=== PATIENT | male | born 1945 | race Caucasian/White ===

== ENCOUNTER 2017-02-22 08:24 | Inpatient (IN) ==
[2017-02-22] MEDS ORDERED: DIPH,PERTUSS(ACELL),TET VAC/PF 0.5 ML SYRINGE IM ONE (08:44)
[2017-02-22] MEDS ORDERED: HYDROmorphone 2 MG/ML SYRINGE IV ONE (08:47)
--- NOTE | 2017-02-22 09:18 | XRay Report ---
CLINICAL INFORMATION: Trauma COMPARISON: None. FINDINGS: The heart is normal in size. Mediastinum is unremarkable. Upper lobe pulmonary vessels show slight cephalization. Lung volumes are mildly elevated - no infiltrates. No effusions. IMPRESSION: No acute cardiopulmonary disease or posttraumatic change. Interpreted and Authenticated by: Nelson Solano 02/22/17
--- NOTE | 2017-02-22 09:20 | XRay Report ---
CLINICAL INFORMATION: Trauma COMPARISON: None. FINDINGS: There is a severely comminuted intertrochanteric fracture of the left hip with moderate impaction and coxa vera angulation. Both SI joints show mild degeneration. The hip joints are normal with alignment. IMPRESSION: The severely comminuted, mildly impacted intertrochanteric fracture of the left hip with coxa vera angulation Interpreted and Authenticated by: Nelson Solano 02/22/17
--- NOTE | 2017-02-22 09:42 | Emergency Department Note ---
Fall HPI - General Chief Complaint: Fall Stated Complaint: fall, left hip pain Time Seen by Provider: 02/22/17 09:12 Source: patient, family Mode of arrival: EMS Limitations: no limitations - History of Present Illness HPI Narrative: 71-year-old male who fell against a door jam face first this morning. 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 When he landed on the hardwood floor he landed on his left hip and this hurts as well. He broke his glasses. Suffered 2 large lacerations on his forehead. No loss of consciousness. - Related Data Home Medications Medication Instructions Recorded Confirmed No Known Home Meds [No Known Home 02/22/17 02/22/17 Meds] Allergies Allergy/AdvReac Type Severity Reaction Status Date / Time No Known Drug Allergies Allergy Verified 02/22/17 08:31 Review of Systems All systems ED: reviewed and negative except as stated. Fall PMH - Past Medical History Attestation: Yes: The following information was validated with the patient. Medical history: Reports: other (Cerebellar ataxia) Surgical history ED: Reports: herniorrhaphy, orthopedic, other (Right patellar removal) Psychiatric history: Reports: anxiety - Social History smoking status: Never smoker Physical Exam No acute distress. Face exam shows 2 large lacerations on the forehead 1 approximately 5 cm long just to the right of center. Additional L-shaped 1 just to the left of center and more inferior about 2.5 cm long. Both linear. No nasal discharge or congestion. Conjunctive are clear sclerae nonicteric. Oropharynx is pink and moist. Neck is supple without lymphadenopathy thyromegaly. No carotid bruit. Heart is regular rate and rhythm no murmurs appreciated. Lungs are clear to auscultation bilaterally without wheezes rales rhonchi or respiratory distress. Abdomen soft nontender nondistended. Pain over left greater trochanter area. But no obvious deformity. He is able to move both feet and toes. Normal posterior tibialis pulse. +2 radial pulse. No pedal edema. Alert oriented and in good spirits. - General Limitations: no limitations Course Vital Signs Temperature 97.1 F 02/22/17 08:26 Pulse Rate 57 L 02/22/17 08:26 Respiratory Rate 18 02/22/17 08:26 Blood Pressure 162/96 02/22/17 08:26 Pulse Oximetry (%) 100 02/22/17 08:26 Temperature 97.1 F 02/22/17 08:26 Pulse Rate 57 L 02/22/17 11:01 Respiratory Rate 18 02/22/17 08:26 Blood Pressure 117/68 02/22/17 11:01 Pulse Oximetry (%) 97 02/22/17 11:01 Procedures - Laceration Laceration 1 Site: face Side (If applicable): left Length of wound repaired (cm): 5 Description: linear Depth: simple, single layer Local Anesthetic: lidocaine 1% Amount of Anesthesia Used (mL): 4 Skin layer closed with: nylon Size: 5-0 Number of sutures: 9 Technique: simple, interrupted Laceration 2 Site: face Side (If applicable): right Length of wound repaired (cm): 2.5 Description: clean, other (L shaped, at an angle) Depth: simple, single layer Local Anesthetic: lidocaine 1% Amount of Anesthesia Used (mL): 3 Skin layer closed with: nylon Size: 5-0 Number of sutures: 4 Technique: simple, interrupted Fall - Lab Data Lab results reviewed: Yes I reviewed the patient's lab results. Result diagrams: 02/22/17 09:55 02/22/17 09:55 Lab Results 02/22/17 02/22/17 02/22/17 Range/Units 09:55 09:55 09:55 WBC 9.0 (4.5-11.0) K/mcL RBC 4.20 L (4.50-5.90) M/mcL Hgb 13.2 L (13.5-16.5) g/dL Hct 39.2 L (41.0-55.0) % MCV 93.3 (80.0-100.0) fL MCH 31.5 (26.0-34.0) pg MCHC 33.8 (31.0-36.0) g/dL RDW 12.6 (11.5-14.5) % Plt Count 216 (140-440) K/mcL MPV 8.1 (7.4-10.4) fL Gran % 84.9 H (38.0-78.0) % Lymph % (Auto) 8.9 L (15.5-49.0) % [place] % (Auto) 5.3 (1.0-12.0) % Eos % (Auto) 0.7 (0.0-7.0) % Baso % (Auto) 0.2 (0.0-2.0) % Gran # 7.7 (1.8-8.0) K/mcL Lymph # (Auto) 0.8 L (1.5-4.8) K/mcL [place] # (Auto) 0.5 (0.1-0.9) K/mcL Eos # (Auto) 0.1 (0.0-0.7) K/mcL Baso # (Auto) 0 (0.0-0.3) K/mcL PT 13.5 (11.9-14.5) sec INR 1.0 (0.9-1.1) Sodium 140 (133-145) mmol/L Potassium 3.8 (3.3-5.1) mmol/L Chloride 101 (96-108) mmol/L Carbon Dioxide 26 (22-30) mmol/L Anion Gap 13.0 (8-16) BUN 15 (8-23) mg/dl Creatinine 0.8 (0.7-1.2) mg/dl GFR Calculation 90 Glucose 167 H (70-105) mg/dL Calcium 8.9 (8.6-10.4) mg/dl Total Bilirubin 0.5 (0.0-1.0) mg/dL AST 15 (0-37) U/l ALT 13 (0-40) U/l Alkaline Phosphatase 83 (39-117) U/L Total Protein 6.3 (5.9-8.4) gm/dL Albumin 4.0 (3.2-5.2) gm/dL Globulin 2.3 (2.2-3.7) gm/dL Albumin/Globulin Ratio 1.7 (1.0-2.3) - Radiology Data Radiology results reviewed: Yes I reviewed the patient's radiology results. Chest x-ray is unremarkable with no acute cardiopulmonary abnormality X-ray of the left hip shows an intertrochanteric fracture comminuted with a coxa vera angulation - EKG Data EKG attestation: Yes I reviewed and interpreted this EKG. EKG results narrative: EKG shows rate of 56 sinus bradycardia with long MS and QT. His got some nonspecific ST depression in V3 through V6-essentially flipped T waves which I suspect is repolarization from his neurologic issue-cerebellar ataxia. Is not having any chest pain or dyspnea Disposition Clinical Impression: Laceration Femur fracture, left Qualifiers: Encounter type: initial encounter Femur location: subtrochanteric Fracture type : closed Fracture alignment: displaced Qualified Code(s): S72.22XA - Displaced subtrochanteric fracture of left femur, initial encounter for closed fracture Summary: Repaired lacerations see procedure note Dr. Tran came in saw the patient-will admit for possible hip replacement tomorrow Disposition: Xfer As Inpt ([facility]) Condition: Fair Referrals: Rossy Orr ARNP [Primary Care Provider] -
[2017-02-22] MEDS: HYDROmorphone 2 MG/ML SYRINGE IV PRN ×4 (09:44→20:31)
[2017-02-22 10:50] LABS: Basophils # (Auto) 0 K/mcL (0.0-0.3); Basophils % (Auto) 0.2 % (0.0-2.0); Eosinophils # (Auto) 0.1 K/mcL (0.0-0.7); Eosinophils % (Auto) 0.7 % (0.0-7.0); Granulocytes % (Auto) 84.9 % (38.0-78.0); Lymphocytes # (Auto) 0.8 K/mcL (1.5-4.8); Lymphocytes % (Auto) 8.9 % (15.5-49.0); Mean Cell Volume 93.3 fL (80.0-100.0); Mean Corpuscular HGB Conc 33.8 g/dL (31.0-36.0); Mean Corpuscular Hemoglobin 31.5 pg (26.0-34.0); Monocytes # (Auto) 0.5 K/mcL (0.1-0.9); Monocytes % (Auto) 5.3 % (1.0-12.0); Platelet Count 216 K/mcL (140-440); Red Cell Distribution Width 12.6 % (11.5-14.5)
[2017-02-22] MEDS ORDERED: 0.9 % SODIUM CHLORIDE 1,000 ML IV ONE (11:00)
[2017-02-22 11:17] LABS: ALT/SGPT 13 U/l (0-40); Albumin/Globulin Ratio 1.7 (1.0-2.3); Alkaline Phosphatase 83 U/L (39-117); Blood Urea Nitrogen 15 mg/dl (8-23)
[2017-02-22] MEDS ORDERED: oxyCODONE/APAP 5/325MG TABLET PO PRN ×2 (12:09→12:37)
[2017-02-22] MEDS ORDERED: TRANEXAMIC ACID 1,000 MG/10 ML VIAL IV ONE ×2 (12:13→12:37)
--- NOTE | 2017-02-22 13:26 | Consultation ---
DATE OF CONSULTATION: 02/22/2017 PREOPERATIVE DIAGNOSIS: Left 4-part intertrochanteric hip fracture. HISTORY OF PRESENT ILLNESS: The patient presented complaining of significant left hip pain with a recent fall. He has had neurologic weakness in the lower extremities that come and go, diagnosed with a viral neuropathic problem. This has been ongoing for several years. He fell because of this weakness, had immediate pain within his hip, was seen in the emergency room and diagnosed with an intertrochanteric 4-part fracture of his left hip. He is in stable condition, gives an excellent history. His memory is very good. No signs of confusion. No chest pain or shortness of breath. PAST MEDICAL HISTORY: He has otherwise been healthy other than this neurologic problem in his lower extremities. He did have some atrial fibrillation in years past, but this was treated and it resolved. He has been taking ibuprofen and aspirin periodically for the pain in his lower extremities due to this weakness. It has not affected his memory in any way. He has no chest pain or shortness of breath. REVIEW OF SYSTEMS: Just weakness and some tingling down his lower extremities. SOCIAL HISTORY: He does live alone. He has been a community ambulator. Does not use alcohol on a regular basis. MEDICATIONS: Ibuprofen and aspirin, mostly for pain. PHYSICAL EXAMINATION: GENERAL: Very pleasant 71-year-old male, gives an excellent history, very thin and frail. He is alert and oriented times 3, in no acute distress. Rates his pain about 3/10. ABDOMEN: Soft, nontender. EXTREMITIES: His left leg is shortened and externally rotated, consistent with an intertrochanteric fracture. His foot is pink and warm to light touch sensation, and he moves his toes without difficulty. SKIN: There is some bruising over the left hip without any open wounds. He has multiple lacerations on the front of his head that have been sewn and look very well done. DIAGNOSIS: Left intertrochanteric hip fracture, 4 part. The x-rays from [facility] are here. I did review the x-ray findings and his diagnosis with the patient and gave him treatment options. Treatment options included a gamma nail, which would fix the two major fragments but would not fix the lesser trochanter or the greater trochanteric fracture. I thought it would be best that he be treated with a calcar-replacing hemiarthroplasty, or a long-stem hemiarthroplasty, or Denominational modular hemiarthroplasty, with cabling of the lesser trochanter and repair the best we can the greater trochanter. He has elected to have the slightly larger surgery, the hemiarthroplasty, as this would be the best chance for him to stay independently living and be able to bear weight on the extremity fairly quickly. His bone is severely osteopenic, which he is aware of, and with some curving of the femur due to the severe osteomalacia or osteoporosis. He has elected to proceed with a cemented calcar-replacing renetta, or Denominational modular stem, these stems will have to be brought in, and open reduction and internal fixation of the greater and lesser trochanteric fractures as possible. He has been consented for this surgery. He agrees to proceed. No family was present. RBH:garret Job ID: [id number] Doc ID: [id number] Roosevelt Rios MD
[2017-02-22] MEDS ORDERED: ACETAMINOPHEN 325 MG TABLET PO PRN (14:57)
[2017-02-22] MEDS ORDERED: NALOXONE HCL 0.4 MG/ML VIAL IV PRN (14:57)
[2017-02-22] MEDS ORDERED: DOCUSATE SODIUM 100 MG CAPSULE PO PRN (14:57)
[2017-02-22] MEDS ORDERED: DEXTROSE 50% 50 ML VIAL IV PRN (14:57)
[2017-02-22] MEDS ORDERED: ONDANSETRON 4 MG/2 ML VIAL IV PRN (14:57)
[2017-02-22] MEDS ORDERED: MAGNESIUM HYDROXIDE 30 ML ORAL.SUSP PO PRN (14:57)
--- NOTE | 2017-02-22 15:06 | Internal Medicine Consult Note ---
Medical - CN: HPI - Data of Consult Patient: new to practice Consult date: 02/22/17 Requesting Physician: Roosevelt Rios Primary Care Provider: Rossy Orrphone #[phone] Family Provider: Rossy Orr - Consult Narrative Reason for consult: hyperglycemia, head trauma after fall History of present illness: Mr. Cho is a 71 year old gentleman who presented to the emergency room today after a fall. he has a long-standing history of cerebellar ataxia, and notes he goes through periodswhere his balance is worse. Today, he bent down to pecan picker his phone, and when he stood up he tried to turn, and he said one of his feet did not keep up with him. He fell forward striking his head on a door jam, and then fell to the floor, landing on his left hip. In the emergency room he had to rather large lacerations of his forehead, which were sutured. Hip x-ray did show a severely comminuted ntertrochanteric fracture of the left hip. The patient was also noted to have elevated glucose of 167, with no reported history of diabetes. dr. Rios requested a consult, regarding elevated glucose, and other medical issues, during the perioperative period. the patient notes that he has been feeling fine lately. He has not had any recent fever or chills, headaches, blurry vision, new eye or ear symptoms, sore throat or cough. He denies chest pain or palpitations, shortness of breath or wheezing, abdominal pain. He is having nausea today, after receiving IV Dilaudid. Otherwise, he has not had vomiting or diarrhea. He notes he tends to struggle with chronic constipation intermittently. He denies dysuria. past medical history: Cerebellar ataxia was diagnosed about 10 years ago. This affects his balanceand his speech, but he says his symptoms tend to wax and wanea bit. He last saw a neurologist a few months ago. Some type of ascending leg weakness after a case of influenzaa few years ago. ( ? Guillain-Ulloa syndrome) history of atrial fibrillation around 1979, which resolved. History of intermittent anxiety for many years, for which he previously took Buspar, but discontinued this about a month ago, concerned about possible side effects. He believes he has poor leg circulation current medications: Flaxseed oil Saw palmetto Alpha glycolic acid (buSpar, quit 1 month ago) Allergies: No known drug allergies Family history: Mother lived to be about 85. Father quite young of an aortic aneurysm and heart attack. One of his brothers at age 60 from pancreatic cancer. Another brother had a genetic condition with optic nerve degeneration and epilepsy. Other siblings had no significant health problems. Social history: The patient is and lives with his . His closest child lives in [place]. He smoked for a few years in college, and quit around age 25. He says he drank quite a bit of alcohol from the age of 17 until about 61, when he quit. He denies drug use. CC: Roosevelt Rios Medical - CN: Meds Home Medications Medication Instructions Recorded Confirmed Type No Known Home Meds [No Known Home 02/22/17 02/22/17 History Meds] Allergies Allergy/AdvReac Type Severity Reaction Status Date / Time No Known Drug Allergies Allergy Verified 02/22/17 15:03 Medical - CN: Exam - Constitutional Vitals: Temp Pulse Resp BP Pulse Ox 97.9 F 68 16 148/88 96 02/22/17 12:38 02/22/17 11:33 02/22/17 12:38 02/22/17 12:38 02/22/17 12:38 Exam: on exam, he is a well-developed, well-nourished elderly man in no acute distress. He is extremely pleasant and cooperative. Head: Is normocephalic. He does have 2 large lacerations, vertical, on his forehead. Both are sutured, and are not bleeding. Eyes: PERRLA, EOMI, anicteric. Ears: He has bilateral cerumen, which partially occludes the TMs. What I could see looked normal. Pharynx: Appears normal. Teeth are in good repair. Neck:Is supple, without obvious lymphadenopathy, JVD, thyromegaly, bruits. Cardiac exam: Shows regular rate and rhythm, with normal S1 and S2. No murmurs, rubs, gallops are noted. Lungs: Clear to auscultation, without rales, rhonchi, wheezes. abdomen: Is soft and nontender, with no masses. Bowel sounds are normoactive. Extremities:Right lower extremity appears normal, without cyanosis, clubbing, edema. Left lower extremity is held in external rotation. There is mild swelling of the upper thigh area but I don't see significant bruising. neurologic:The patient is alert and oriented 3. Mood and affect appear normal. motor strength appears intact and grossly symmetric. Cerebellar: No tremors are noted. Gait is not tested. Skin exam: Shows no rashes or other worrisome lesions. Medical - CN: Result - Labs CBC & Chem 7: 02/22/17 09:55 02/22/17 09:55 Labs: February 22: -Differential shows 84% granulocytes, but absolute granulocyte count is normal at 7700. Absolute lymphocyte count is a bit low at 800. pro time is 13, with INR of 1.0 Liver function tests are normal.extremities urinalysis is pending. EKG: Shows normal sinus rhythm at a rate of about 60, with left axis deviation. There is evidence for LVH with repolarization changes, including inverted T waves in leads V3 through V6. T waves are diffusely flattened. There is no old EKG to compare. Chest x-ray: Shows no acute disease. left hip x-ray: Shows severely comminuted, mildly impacted intertrochanteric fracture of the left hip with coxa vera angulation. Medical - CN: A/P (1) Forehead laceration Status: Acute (2) Cerebellar ataxia Status: Chronic (3) Hx of atrial fibrillation without current medication Status: Resolved (4) Hyperglycemia Status: Acute (5) Head trauma Status: Acute (6) Abnormal EKG Status: Acute (7) Anxiety Status: Chronic (8) Femur fracture, left Status: Acute - Narrative A/P Narrative: #1. Orthopedic. patient presents after a fall with severely comminuted left femur fracture. Dr. Rios plans to take him to the OR tomorrow. He has no significant cardiac history, and risk factors mainly include his age, and a distant history of atrial fibrillation. he should be fairly low risk for complications. However, we may need to watch his fluid balance closely. -DVT prophylaxis will be per Dr. Tran's preference. we need to keep in mind the patient's recent head trauma. -Tdap was ordered. #2. Endocrine. -patient presents with hyperglycemia, without known history of diabetes. Check hemoglobin A1c. Monitor with Accu-Cheks and cover with sliding scale insulin. #3. Status post fall, with significant head trauma.- -Patient did not have a head CT in the emergency room. I am reluctant to move him around much currently, due to his hip fracture. I discussed with him to let us know if he develops worsening headache blurry vision, confusion, etc. if he develops any symptoms, we certainly will need to do a head CT. #4. Cardiac. -Distant history of atrial fibrillation. If he receives excessive fluids intraoperatively. This might recur. Continue to monitor. EKG is mildly abnormal, likely with repolarization abnormalities. We will request a previous EKG from his primary care physician's office. 35. Neurologic. Patient has a history of cerebellar ataxia, and may also have a previous lower extremity neuropathy issue. He is at high risk for falls. physical therapy will evaluate after surgery, and try to minimize risk. 36. Psychiatric. -Patient reports a long-standing history of mild anxiety, which was previously treated with BuSpar. Cover with when necessary Ativan. 37. DVT prophylaxis: Per orthopedic surgeon. #8. CODE STATUS: Full code. He reports he does not have a formal POA, but would have his make any needed decisions. this visit took approximately 60 minutes to review test results, her review the case with Dr. Rios,interview and examine the patient, review plan of care with nursing staff, and write orders.
[2017-02-22] MEDS: POTASSIUM CHLORIDE 20 MEQ in 0.45 % SODIUM CHLORIDE 1,000 ML IV SCH (15:21)
[2017-02-22] MEDS: INSULIN LISPRO 1 UNIT/0.01 ML UNIT SQ SCH ×2 (17:28→20:31)
[2017-02-22 18:12] LABS: Hemoglobin A1C 4.8 % HGB (4.0-6.0)
[2017-02-22 18:36] LABS: Appearance,Urine CLEAR; Bilirubin,Urine NEG (NEG); Color,Urine YELLOW; Glucose,Urine (UA) NEGATIVE (NEG); Leukocyte Esterase,Urine NEG /uL (NEG); Nitrate,Urine NEG (NEG); Protein,Urine NEG (NEG); Specific Gravity,Urine 1.021 (1.000-1.035); Urine Blood NEG mg/dL (<0.03); Urobilinogen,Urine NEG (NEG)
[2017-02-22] MEDS ORDERED: LORazepam 2 MG/ML VIAL IV PRN (19:13)
[2017-02-22] MEDS: 0.9 % SODIUM CHLORIDE 10 ML SYRINGE IV SCH (21:12)
[2017-02-23] MEDS ORDERED: METHOCARBAMOL 1,000 MG/10 ML VIAL ONE (01:54)
[2017-02-23] MEDS: POTASSIUM CHLORIDE 20 MEQ in 0.45 % SODIUM CHLORIDE 1,000 ML IV SCH (04:45)
[2017-02-23] MEDS: 0.9 % SODIUM CHLORIDE 10 ML SYRINGE IV SCH ×5 (05:11→23:50)
[2017-02-23 05:55] LABS: ALT/SGPT 10 U/l (0-40); Albumin 3.5 gm/dL (3.2-5.2); Albumin/Globulin Ratio 1.8 (1.0-2.3); Alkaline Phosphatase 58 U/L (39-117); Bilirubin,Direct < 0.2 mg/dL (0.0-0.3); Blood Urea Nitrogen 16 mg/dl (8-23); Gamma Glutamyl Transpeptidase 9 U/L (8-61); Magnesium 2.1 mg/dL (1.6-2.5); Uric Acid 4.2 mg/dL (2.5-8.0)
[2017-02-23] MEDS ORDERED: ceFAZolin 1 GM VIAL IV SCH ×2 (07:00)
[2017-02-23] MEDS: INSULIN LISPRO 1 UNIT/0.01 ML UNIT SQ SCH ×2 (07:48→11:35)
[2017-02-23] MEDS: METHOCARBAMOL 1,000 MG/10 ML VIAL IV PRN ×2 (08:09→17:23)
[2017-02-23] MEDS: HYDROmorphone 2 MG/ML SYRINGE IV PRN (08:11)
[2017-02-23] MEDS ORDERED: DEXAMETHASONE 10 MG/ML VIAL IV ONE (11:05)
[2017-02-23] MEDS ORDERED: ONDANSETRON 4 MG/2 ML VIAL IV ONE (11:05)
[2017-02-23] MEDS ORDERED: PROPOFOL 200 MG/20 ML VIAL IV ONE (11:05)
[2017-02-23] MEDS ORDERED: fentaNYL 250 MCG/5 ML VIAL IV ONE (11:05)
[2017-02-23] MEDS ORDERED: MIDAZOLAM 5 MG/5 ML VIAL IV ONE (11:05)
[2017-02-23] MEDS ORDERED: PHENYLEPHRINE 10 MG/ML VIAL IV ONE (11:05)
[2017-02-23] MEDS ORDERED: LIDOCAINE HCL/PF 100 MG/5 ML SYRINGE IV ONE (11:05)
[2017-02-23] MEDS ORDERED: TRANEXAMIC ACID 1,000 MG/10 ML VIAL IV ONE ×2 (11:05→13:14)
[2017-02-23] MEDS ORDERED: ePHEDrine 50 MG/ML AMPUL IV ONE (11:05)
[2017-02-23] MEDS ORDERED: GENTAMICIN SULFATE 800 MG/20 ML VIAL IR ONE (11:29)
--- NOTE | 2017-02-23 12:15 | Internal Med Progress Note ---
Medical - PN: Subj Patient information: Note initiated : 02/23/17 at 12:15 pm Patient: Kristian Cho a 71 y/o M admitted on 02/22/17 for Fall, Lt Hip Pain/Left Femur Fracture, Laceration. Interval history: February 22, 2017:History of present illness: Mr. Cho is a 71 year old gentleman who presented to the emergency room today after a fall. he has a long-standing history of cerebellar ataxia, and notes he goes through periodswhere his balance is worse. Today, he bent down to picker his phone, and when he stood up he tried to turn, and he said one of his feet did not keep up with him. He fell forward striking his head on a door jam, and then fell to the floor, landing on his left hip. In the emergency room he had to rather large lacerations of his forehead, which were sutured. Hip x-ray did show a severely comminuted ntertrochanteric fracture of the left hip. The patient was also noted to have elevated glucose of 167, with no reported history of diabetes. dr. Rios requested that I see the patient,, regarding elevated glucose, and other medical issues, during the perioperative period. the patient notes that he has been feeling fine lately. He has not had any recent fever or chills, headaches, blurry vision, new eye or ear symptoms, sore throat or cough. He denies chest pain or palpitations, shortness of breath or wheezing, abdominal pain. He is having nausea today, after receiving IV Dilaudid. Otherwise, he has not had vomiting or diarrhea. He notes he tends to struggle with chronic constipation intermittently. He denies dysuria. february 23: The patient's surgery was held briefly this morning as the official reading on the EKG expressed concern about acutecardiac injury. We did send for his last EKG from his primary care's office, but apparently they don't have an EKG on him. The patient really cannot give any history of any cardiac problems or cardiac symptoms and I suspect his EKG changeswere more related to repolarization. he therefore did undergo his surgery today. he appears to have tolerated surgery just fine. Currently,he is awake and alert. He is having fairly minimal pain. He refused Comer catheter placement, and is continuing to use a urinal. He denies fever or chills, chest pain or palpitations, shortness of breath, abdominal pain, nausea or vomiting diarrhea or constipation. - Constitutional Vitals: Vital Signs Temp Pulse Resp BP Pulse Ox 98.6 F 64 14 116/70 98 02/23/17 07:18 02/23/17 04:00 02/23/17 08:00 02/23/17 07:18 02/23/17 08:00 Period Temp Pulse Resp BP Sys/Swanson Pulse Ox Last 24 Hr 97.8 F-98.8 F 64-67 14-16 116-148/62-88 93-98 Intake and Output 02/22/17 02/23/17 02/23/17 21:59 05:59 13:59 Intake Total 0 / 0 1010 / 1010 Output Total 220 / 220 100 / 100 150 / 150 Balance -220 / -220 910 / 910 -150 / -150 Weight 149 lb 8 oz Intake & Output: Intake & Output 02/22/17 02/23/17 02/23/17 21:59 05:59 13:59 Intake Total 0 / 0 1010 / 1010 Output Total 220 / 220 100 / 100 150 / 150 Balance -220 / -220 910 / 910 -150 / -150 Weight 149 lb 8 oz Intake: IV 0 / 0 1010 / 1010 Potassium Chloride 20 Meq 1010 / 1010 In Sodium Chloride 0.45% 1,000 ml @ 84 mls/hr IV .Q12H2M [facility] Rx#:[id number] Oral 0 / 0 Output: Void Amount 100 / 100 100 / 100 150 / 150 Emesis 120 / 120 Other: Meal Dinner Percent of Meal Consumed 0% Feeding Ability Independent on exam, Medical - PN: Obj Da - Labs CBC & Chem 7: 02/22/17 09:55 02/23/17 03:55 Labs: Abnormal Lab Results 02/23/17 02/22/17 03:55 17:50 Glucose 137 H Calcium 8.5 L Total Protein 5.4 L Globulin 1.9 L Urine Ketones 20 A Meds: Medications Acetaminophen (Tylenol) 650 mg PO Q6HP PRN PRN Reason: PAIN/FEVER > 101 Cefazolin Sodium (Ancef) 2 gm IV PREOP ELBA Stop: 02/23/17 15:00 Last Admin: 02/23/17 10:31 Dose: 2 gm Dextrose (Dextrose 50%) 0 ml IV UD PRN PRN Reason: Hypoglycemia Diagnostic Test (Pha) (Accu-Chek) 1 each FS ACHS [facility] Last Admin: 02/23/17 11:34 Dose: Not Given Docusate Sodium (Colace) 100 mg PO BID PRN PRN Reason: Constipation Hydromorphone HCl (Dilaudid) 0.5 mg IV Q15MIN PRN PRN Reason: Pain Last Admin: 02/23/17 08:11 Dose: 0.5 mg Potassium Chloride 20 meq/ (Sodium Chloride) 1,010 mls @ 84 mls/hr IV .Q12H2M [facility] Last Admin: 02/23/17 04:45 Dose: 84 mls/hr Insulin Human Lispro (Humalog) 0 unit SQ [facility] PRN Reason: Protocol Last Admin: 02/23/17 11:35 Dose: Not Given Lorazepam (Ativan) 0.5 mg IV Q4-6HP PRN PRN Reason: ANXIETY/SEDATION Last Admin: 02/23/17 00:01 Dose: 0.5 mg Magnesium Hydroxide (Milk Of Magnesia) 30 ml PO DAILYP PRN PRN Reason: Constipation Methocarbamol (Robaxin) 750 mg IV Q6HP PRN PRN Reason: Muscle Spasm Last Admin: 02/23/17 08:09 Dose: 750 mg Naloxone HCl (Narcan) 0.1 mg IV Q2MIN PRN PRN Reason: Opiate Reversal Ondansetron HCl (Zofran) 4 mg IV Q6HP PRN PRN Reason: Nausea And Vomiting Last Admin: 02/22/17 15:59 Dose: 4 mg Oxycodone/Acetaminophen (Percocet 5-325 Mg) 1 tab PO Q4HP PRN PRN Reason: Pain Last Admin: 02/23/17 00:01 Dose: 1 tab Sodium Chloride (Saline Flush) 10 ml IV Q8 ELBA Last Admin: 02/23/17 05:11 Dose: Not Given Medical - PN: A/P - Time Spent With Patient Total time spent is greater than 50% in coordination of care (as documented) at patient's floor/unit and/or counseling patient: (1) Forehead laceration Status: Acute Current Visit: Yes (2) Cerebellar ataxia Status: Chronic Current Visit: Yes (3) Hx of atrial fibrillation without current medication Status: Resolved Current Visit: Yes (4) Hyperglycemia Status: Acute Current Visit: Yes (5) Head trauma Status: Acute Current Visit: Yes (6) Abnormal EKG Status: Acute Current Visit: Yes (7) Anxiety Status: Chronic Current Visit: Yes (8) Femur fracture, left Status: Acute Current Visit: Yes Medical - PN: Qual - Stroke Symptom Onset Unknown: No - VTE Deep Vein Thrombosis/Pulmonary Embolism Present on Admission: No
[2017-02-23] MEDS ORDERED: ONDANSETRON 4 MG/2 ML VIAL IV PRN ×2 (12:20→13:14)
[2017-02-23] MEDS ORDERED: BENZOCAINE/MENTHOL 1 LOZENGE PO PRN ×2 (12:20→13:14)
[2017-02-23] MEDS ORDERED: ATROPINE SULFATE 0.4 MG/ML VIAL IV PRN (12:20)
[2017-02-23] MEDS ORDERED: ACETAMINOPHEN 1,000 MG/100 ML BOTTLE IV ONE (12:20)
[2017-02-23] MEDS ORDERED: NALOXONE HCL 0.4 MG/ML VIAL IV PRN (12:20)
[2017-02-23] MEDS ORDERED: diphenhydrAMINE 50 MG/ML VIAL IV PRN (12:20)
[2017-02-23] MEDS ORDERED: MEPERIDINE 25 MG/ML SYRINGE IV PRN (12:20)
[2017-02-23] MEDS ORDERED: METHOCARBAMOL 1,000 MG/10 ML VIAL IV PRN (12:20)
[2017-02-23] MEDS ORDERED: METOPROLOL TARTRATE 5 MG/5 ML VIAL IV PRN (12:20)
[2017-02-23] MEDS ORDERED: HYDROmorphone 2 MG/ML SYRINGE IV PRN ×2 (12:20→13:14)
[2017-02-23] MEDS ORDERED: IPRATROPIUM/ALBUTEROL 3 ML AMPUL.NEB NEB PRN (12:20)
[2017-02-23] MEDS ORDERED: FLUMAZENIL 0.1 MG/ML ML IV PRN (12:20)
[2017-02-23] MEDS ORDERED: ePHEDrine 50 MG/ML AMPUL IV PRN (12:20)
[2017-02-23] MEDS ORDERED: LACTATED RINGERS 1,000 ML IV SCH (12:30)
--- NOTE | 2017-02-23 12:38 | XRay Report ---
CLINICAL INFORMATION: Left hip ORIF COMPARISON: Preoperative study 02/22/2017 FINDINGS: Bilateral hip prostheses has been placed. A cerclage wire transfixes the intertrochanteric fracture. The lesser trochanteric fragment remains - displaced 2 cm medially. Soft tissue swelling is seen - as expected IMPRESSION: Left hip prostheses in near anatomic alignment. Intertrochanteric fracture is transfixed by a cerclage wire. It is anatomically aligned with the exception of a displaced lesser trochanteric fragment medially Interpreted and Authenticated by: Nelson Solano 02/23/17
--- NOTE | 2017-02-23 12:45 | XRay Report ---
CLINICAL INFORMATION: Left hip prostheses COMPARISON: None. FINDINGS: Left hip prostheses anatomically aligned. Cerclage wires transfixing acute intertrochanteric fracture which is well aligned with the exception of a lesser trochanteric fragment displaced 1 cm medially. IMPRESSION: Left hip prostheses is anatomically aligned. Acute intertrochanteric fracture has been reduced to near-anatomic alignment and transfixed by cerclage wires - please see above Interpreted and Authenticated by: Nelson Solano 02/23/17
[2017-02-23] MEDS: fentaNYL 100 MCG/2 ML VIAL IV PRN ×4 (13:05→13:35)
[2017-02-23] MEDS ORDERED: POLYETHYLENE GLYCOL 3350 17 GM PACKET PO PRN (13:14)
[2017-02-23] MEDS ORDERED: TEMAZEPAM 15 MG CAPSULE PO PRN (13:14)
[2017-02-23] MEDS ORDERED: MAGNESIUM HYDROXIDE 30 ML ORAL.SUSP PO PRN (13:14)
[2017-02-23] MEDS ORDERED: KETOROLAC 15 MG/ML VIAL IV PRN (13:14)
[2017-02-23] MEDS ORDERED: BISACODYL 10 MG SUPP.RECT PR PRN (13:14)
[2017-02-23] MEDS ORDERED: FLEETS ADULT ENEMA PR PRN (13:14)
[2017-02-23] MEDS ORDERED: ACETAMINOPHEN 325 MG TABLET PO PRN (13:14)
--- NOTE | 2017-02-23 13:20 | Brief Operative Note ---
Date of procedure: 02/23/17 Pre-op diagnosis: left hip 4 part intertrochanteric fracture Post-op diagnosis: same Procedure: Left hip 4 part intertrochanteric hip fx orig and cemeented renetta arthroplasty Grafts/Implants: Yes Anesthesia: GETA Complications: none Surgeon: Roosevelt Rios Insurance Sales Specialist: Jay Mckeon Estimated blood loss (cc): 150 Specimens Removed/Pathology: none sent Condition: stable Disposition: PACU
[2017-02-23] MEDS: 0.45 % SODIUM CHLORIDE 1,000 ML IV SCH (13:45)
--- NOTE | 2017-02-23 14:14 | XRay Report ---
CLINICAL INFORMATION: Postop total hip prostheses COMPARISON: None. FINDINGS: Left hip prostheses is anatomically aligned. Cerclage wires provides support for the intertrochanteric fracture. There are multiple comminuted lesser trochanter fragments which are displaced 1 cm medially. Moderate soft tissue swelling noted IMPRESSION: Left hip prostheses anatomically aligned. Interpreted and Authenticated by: Nelson Solano 02/23/17
--- NOTE | 2017-02-23 14:17 | Operative Note ---
DATE OF OPERATION: 02/23/2017 PREOPERATIVE DIAGNOSIS: Left hip intertrochanteric hip fracture 4-part. POSTOPERATIVE DIAGNOSIS: Left hip intertrochanteric hip fracture 4-part. PROCEDURE: Left hip open reduction and internal fixation of the greater and lesser tuberosities with cemented hemiarthroplasty. SURGEON: Roosevelt Rios MD. COLD ROLLING SUPERVISOR: Jay Mckeon PA-C. ANESTHESIA: General LMA anesthesia. COMPLICATIONS: None. ESTIMATED BLOOD LOSS: 150 mL. IMPLANTS PLACED: Size 7 cemented stem with a neutral neck length with a 53 mm ball with two cables. DESCRIPTION OF PROCEDURE: The patient was brought to the operating room and put to sleep with general LMA anesthesia. Once asleep, we confirmed the operative site with both initials, x-rays and timeout. Patient was placed in a Hira positioner on a right lateral position. The left hip was sterilely prepped and draped in the usual sterile fashion. We placed Ioban over the skin and made a superior posterior approach. This was carried into the tensor fascia because of the length of the fracture. We exposed the posterior capsule which was released and dislocated the hip. We made a bony cut just below the femoral head, placed two cables around the lesser trochanter and these were tensioned, and then we reamed up to the size for a 7 stem. We broached up to a size 7 stem and took x-rays. This showed near equal leg length and offset. We then cemented into place a size 7 stem with 15 degrees of anteversion, a 53 mm hemiarthroplasty with neutral neck length. Once the cement was in place and dry, we trialed the hip. We noted that this was completely stable and within a finger length of being equal in leg length. This was about normal anatomy. The x-ray was taken during the case to confirm on two different occasions. We then placed the neutral neck length 53 mm ball, closed the capsule with #2 Ethibond, closed the fascial layer with #2 Ethibond and a #1 barbed suture. We closed the skin with 2-0 Vicryl and reilly superficially. The patient tolerated this well without complication. [facility]:ines Job ID: [id number] Doc ID: [id number] Roosevelt Rios MD
[2017-02-23] MEDS: ceFAZolin 1 GM VIAL IV SCH ×2 (17:10→23:51)
--- NOTE | 2017-02-23 19:07 | Internal Med History&Physical ---
Medical - H&P: [facility] Patient information: Note initiated : February 22, 2017: Time 15:05 initial note was in fact n admission H&P, rather than a consult note. Patient: Kristian Cho 71 y/o M admitted on 02/22/17 for Fall, Lt Hip Pain/Left Femur Fracture, Laceration. History of present illness: Mr. Cho is a 71 year old M Primary Care Provider: Rossy Orrphone #[phone] Family Provider: Rossy Orr History of present illness: Mr. Cho is a 71 year old gentleman who presented to the emergency room today after a fall. he has a long-standing history of cerebellar ataxia, and notes he goes through periods where his balance is worse. Today, he bent down to black pickler his phone, and when he stood up he tried to turn, and he said one of his feet did not keep up with him. He fell forward striking his head on a door jam, and then fell to the floor, landing on his left hip. In the emergency room he had to rather large lacerations of his forehead, which were sutured. Hip x-ray did show a severely comminuted ntertrochanteric fracture of the left hip. The patient was also noted to have elevated glucose of 167, with no reported history of diabetes. dr. Rios requested a consult, regarding elevated glucose, and other medical issues, during the perioperative period. the patient notes that he has been feeling fine lately. He has not had any recent fever or chills, headaches, blurry vision, new eye or ear symptoms, sore throat or cough. He denies chest pain or palpitations, shortness of breath or wheezing, abdominal pain. He is having nausea today, after receiving IV Dilaudid. Otherwise, he has not had vomiting or diarrhea. He notes he tends to struggle with chronic constipation intermittently. He denies dysuria. past medical history: Cerebellar ataxia was diagnosed about 10 years ago. This affects his balanceand his speech, but he says his symptoms tend to wax and wanea bit. He last saw a neurologist a few months ago. Some type of ascending leg weakness after a case of influenzaa few years ago. ( ? Guillain-Ulloa syndrome) history of atrial fibrillation around 1979, which resolved. History of intermittent anxiety for many years, for which he previously took Buspar, but discontinued this about a month ago, concerned about possible side effects. He believes he has poor leg circulation current medications: Flaxseed oil Saw palmetto Alpha glycolic acid (buSpar, quit 1 month ago) Allergies: No known drug allergies Family history: Mother lived to be about 85. Father quite young of an aortic aneurysm and heart attack. One of his brothers at age 60 from pancreatic cancer. Another brother had a genetic condition with optic nerve degeneration and epilepsy. Other siblings had no significant health problems. Social history: The patient is and lives with his . His closest child lives in [place]. He smoked for a few years in college, and quit around age 25. He says he drank quite a bit of alcohol from the age of 17 until about 61, when he quit. He denies drug use. Medical - H&P: Meds Home Medications Medication Instructions Recorded Confirmed Type No Known Home Meds [No Known Home 02/22/17 02/22/17 History Meds] Allergies Allergy/AdvReac Type Severity Reaction Status Date / Time No Known Drug Allergies Allergy Verified 02/22/17 15:03 Medical - H&P: Exam - Constitutional Vitals: Temp Pulse Resp BP Pulse Ox 98.2 F 80 16 159/83 100 02/23/17 14:09 02/23/17 14:09 02/23/17 14:09 02/23/17 16:19 02/23/17 16:19 admission vitals: Temperature 97.9 pulse 68 respiratory rate 16 blood pressure 148/88 O2 saturation 96% on room air on exam, he is a well-developed, well-nourished elderly man in no acute distress. He is extremely pleasant and cooperative. Head: Is normocephalic. He does have 2 large lacerations, vertical, on his forehead. Both are sutured, and are not bleeding. Eyes: PERRLA, EOMI, anicteric. Ears: He has bilateral cerumen, which partially occludes the TMs. What I could see looked normal. Pharynx: Appears normal. Teeth are in good repair. Neck:Is supple, without obvious lymphadenopathy, JVD, thyromegaly, bruits. Cardiac exam: Shows regular rate and rhythm, with normal S1 and S2. No murmurs, rubs, gallops are noted. Lungs: Clear to auscultation, without rales, rhonchi, wheezes. abdomen: Is soft and nontender, with no masses. Bowel sounds are normoactive. Extremities:Right lower extremity appears normal, without cyanosis, clubbing, edema. Left lower extremity is held in external rotation. There is mild swelling of the upper thigh area but I don't see significant bruising. neurologic:The patient is alert and oriented 3. Mood and affect appear normal. motor strength appears intact and grossly symmetric. Cerebellar: No tremors are noted. Gait is not tested. Skin exam: Shows no rashes or other worrisome lesions. Medical - H&P: Reslt - Labs CBC & Chem 7: 02/22/17 09:55 02/23/17 03:55 Labs: BMP 02/23/17 03:55 Sodium 139 Potassium 4.1 Chloride 105 Carbon Dioxide 25 BUN 16 Creatinine 0.8 Glucose 137 H Calcium 8.5 L Liver Function 02/23/17 Range/Units 03:55 Total Bilirubin 0.6 (0.0-1.0) mg/dL Direct Bilirubin < 0.2 (0.0-0.3) mg/dL GGT 9 (8-61) U/L AST 12 (0-37) U/l ALT 10 (0-40) U/l Alkaline Phosphatase 58 (39-117) U/L Albumin 3.5 (3.2-5.2) gm/dL February 22: Pro time is 13 with an INR of 1.0 Chemistry panel:Sodium 140, potassium 3.8, chloride 101, CO2 26, anion gap 13 B1 15, creatinine 0.8 glucose 167 A1c is 4.8%Calcium is 8.9 total bilirubin 0.5 LFTs within normal limits Troponin is normal at less than 0.01 Urinalysis shows 20 ketones, and is otherwise normal, with pH of 5.0, specific gravity of 1.0-1 -Differential shows 84% granulocytes, but absolute granulocyte count is normal at 7700. Absolute lymphocyte count is a bit low at 800. pro time is 13, with INR of 1.0 Liver function tests are normal. EKG: Shows normal sinus rhythm at a rate of about 60, with left axis deviation. There is evidence for LVH with repolarization changes, including inverted T waves in leads V3 through V6. T waves are diffusely flattened. There is no old EKG to compare. Chest x-ray: Shows no acute disease. left hip x-ray: Shows severely comminuted, mildly impacted intertrochanteric fracture of the left hip with coxa vera angulation. Medical - H&P: A/P (1) Forehead laceration Current visit: Yes Status: Acute (2) Cerebellar ataxia Current visit: Yes Status: Chronic (3) Hx of atrial fibrillation without current medication Current visit: Yes Status: Resolved (4) Hyperglycemia Current visit: Yes Status: Acute (5) Head trauma Current visit: Yes Status: Acute (6) Abnormal EKG Current visit: Yes Status: Acute (7) Anxiety Current visit: Yes Status: Chronic (8) Femur fracture, left Current visit: Yes Status: Acute - Narrative A/P Narrative: #1. Orthopedic. patient presents after a fall with severely comminuted left femur fracture. Dr. Rios plans to take him to the OR tomorrow. He has no significant cardiac history, and risk factors mainly include his age, and a distant history of atrial fibrillation. he should be fairly low risk for complications. However, we may need to watch his fluid balance closely. -DVT prophylaxis will be per Dr. Tran's preference. we need to keep in mind the patient's recent head trauma. -Tdap was ordered. #2. Endocrine. -patient presents with hyperglycemia, without known history of diabetes. Check hemoglobin A1c. Monitor with Accu-Cheks and cover with sliding scale insulin. #3. Status post fall, with significant head trauma.- -Patient did not have a head CT in the emergency room. I am reluctant to move him around much currently, due to his hip fracture. I discussed with him to let us know if he develops worsening headache blurry vision, confusion, etc. if he develops any symptoms, we certainly will need to do a head CT. #4. Cardiac. -Distant history of atrial fibrillation. If he receives excessive fluids intraoperatively. This might recur. Continue to monitor. EKG is mildly abnormal, likely with repolarization abnormalities. We will request a previous EKG from his primary care physician's office. 35. Neurologic. Patient has a history of cerebellar ataxia, and may also have a previous lower extremity neuropathy issue. He is at high risk for falls. physical therapy will evaluate after surgery, and try to minimize risk. 36. Psychiatric. -Patient reports a long-standing history of mild anxiety, which was previously treated with BuSpar. Cover with when necessary Ativan. 37. DVT prophylaxis: Per orthopedic surgeon. #8. CODE STATUS: Full code. He reports he does not have a formal POA, but would have his make any needed decisions. this visit took approximately 60 minutes to review test results, her review the case with Dr. Rios,interview and examine the patient, review plan of care with nursing staff, and write orders. Medical - H&P: Qual - Stroke Symptom Onset Unknown: No - VTE Deep Vein Thrombosis/Pulmonary Embolism Present on Admission: No
--- NOTE | 2017-02-23 19:18 | Internal Med Progress Note ---
Medical - PN: Subj Patient information: Note initiated : 02/23/17 at 7:16 pm Service Date, if different from initiated Date: [] Patient: Kristian Cho a 71 y/o M admitted on 02/22/17 for Fall, Lt Hip Pain/Left Femur Fracture, Laceration. Chief Complaint: [] Interval history: February 22, 2017:History of present illness: Mr. Cho is a 71 year old gentleman who presented to the emergency room today after a fall. he has a long-standing history of cerebellar ataxia, and notes he goes through periodswhere his balance is worse. Today, he bent down to berry picker his phone, and when he stood up he tried to turn, and he said one of his feet did not keep up with him. He fell forward striking his head on a door jam, and then fell to the floor, landing on his left hip. In the emergency room he had to rather large lacerations of his forehead, which were sutured. Hip x-ray did show a severely comminuted ntertrochanteric fracture of the left hip. The patient was also noted to have elevated glucose of 167, with no reported history of diabetes. dr. Rios requested that I see the patient,, regarding elevated glucose, and other medical issues, during the perioperative period. the patient notes that he has been feeling fine lately. He has not had any recent fever or chills, headaches, blurry vision, new eye or ear symptoms, sore throat or cough. He denies chest pain or palpitations, shortness of breath or wheezing, abdominal pain. He is having nausea today, after receiving IV Dilaudid. Otherwise, he has not had vomiting or diarrhea. He notes he tends to struggle with chronic constipation intermittently. He denies dysuria. february 23: The patient's surgery was held briefly this morning as the official reading on the EKG expressed concern about acutecardiac injury. We did send for his last EKG from his primary care's office, but apparently they don't have an EKG on him. The patient really cannot give any history of any cardiac problems or cardiac symptoms and I suspect his EKG changeswere more related to repolarization. he therefore did undergo his surgery today. he appears to have tolerated surgery just fine. Currently,he is awake and alert. He is having fairly minimal pain. He refused Comer catheter placement, and is continuing to use a urinal. He denies fever or chills, chest pain or palpitations, shortness of breath, abdominal pain, nausea or vomiting diarrhea or constipation. - Constitutional Vitals: Vital Signs Temp Pulse Resp BP Pulse Ox 98.2 F 80 16 159/83 100 02/23/17 14:09 02/23/17 14:09 02/23/17 14:09 02/23/17 16:19 02/23/17 16:19 Period Temp Pulse Resp BP Sys/Swanson Pulse Ox Last 24 Hr 97.8 F-98.6 F 64-88 10-16 115-159/59-83 93-100 Intake and Output 02/23/17 02/23/17 02/23/17 05:59 13:59 21:59 Intake Total 1010 / 1010 1800 / 1800 300 / 300 Output Total 100 / 100 150 / 150 600 / 600 Balance 910 / 910 1650 / 1650 -300 / -300 Intake & Output: Intake & Output 02/23/17 02/23/17 02/23/17 05:59 13:59 21:59 Intake Total 1010 / 1010 1800 / 1800 300 / 300 Output Total 100 / 100 150 / 150 600 / 600 Balance 910 / 910 1650 / 1650 -300 / -300 Intake: IV 1010 / 1010 1800 / 1800 Potassium Chloride 20 Meq 1010 / 1010 In Sodium Chloride 0.45% 1,000 ml @ 84 mls/hr IV .Q12H2M [facility] Rx#:[id number] Oral 300 / 300 Output: Void Amount 100 / 100 150 / 150 600 / 600 Straight 400 / 400 on exam, the patient is awake and alert.he appears comfortable. Neck is supple without obvious lymphadenopathy or JVD. Cardiac exam shows regular rate and rhythm. Lungs, have a few crackles at the bases, and are otherwise clear. Abdomen is soft and nontender. Extremities show no significant edema. Left leg is still held in external rotation. Left hip incision is bandaged, and is clean and dry. Neurologic exam: The patient is alert and oriented. Speech is somewhat slow and stuttering, consistent with his baseline cerebellar ataxia issues. Medical - PN: Obj Da - Labs CBC & Chem 7: 02/22/17 09:55 02/23/17 03:55 Labs: Abnormal Lab Results 02/23/17 02/22/17 03:55 17:50 Glucose 137 H Calcium 8.5 L Total Protein 5.4 L Globulin 1.9 L Urine Ketones February 22: Differential shows 84% granulocytes, but absolute granulocyte count is normal at 7700. Absolute lymphocyte count is a bit low at 800. pro time is 13, with INR of 1.0 Liver function tests are normal.extremities urinalysis is pending. EKG: Shows normal sinus rhythm at a rate of about 60, with left axis deviation. There is evidence for LVH with repolarization changes, including inverted T waves in leads V3 through V6. T waves are diffusely flattened. There is no old EKG to compare. Chest x-ray: Shows no acute disease. left hip x-ray: Shows severely comminuted, mildly impacted intertrochanteric fracture of the left hip with coxa vera angulation. Meds: Medications Acetaminophen (Tylenol) 650 mg PO Q6HP PRN PRN Reason: PAIN/FEVER > 101 Hydrocodone Bitart/Acetaminophen ([place] 10/325mg) 0 tab PO Q4HP PRN PRN Reason: Pain Aspirin (Ecotrin) 325 mg PO BID [facility] Bisacodyl (Dulcolax) 10 mg AR Q2-3DAYS PRN PRN Reason: Constipation Cefazolin Sodium (Ancef) 2 gm IV Q8H [facility] Stop: 02/24/17 00:01 Last Admin: 02/23/17 17:10 Dose: 2 gm Docusate Sodium (Colace) 100 mg PO BID [facility] Hydromorphone HCl (Dilaudid) 0.5 mg IV Q15MIN PRN PRN Reason: Pain Last Admin: 02/23/17 08:11 Dose: 0.5 mg Hydromorphone HCl (Dilaudid) 0 mg IV Q2HP PRN PRN Reason: Pain Sodium Chloride (Sodium Chloride 0.45%) 1,000 mls @ 100 mls/hr IV .Q10H [facility] Last Admin: 02/23/17 13:45 Dose: 100 mls/hr Ketorolac Tromethamine (Toradol) 15 mg IV Q6HP PRN PRN Reason: Pain Stop: 02/25/17 13:14 Last Admin: 02/23/17 17:24 Dose: 15 mg Magnesium Hydroxide (Milk Of Magnesia) 30 ml PO BIDP PRN PRN Reason: Constipation Ondansetron HCl (Zofran) 4 mg IV Q4HP PRN PRN Reason: Nausea And Vomiting Oxycodone/Acetaminophen (Percocet 5-325 Mg) 1 tab PO Q4HP PRN PRN Reason: Pain Last Admin: 02/23/17 00:01 Dose: 1 tab Polyethylene Glycol (Miralax) 17 gm PO DAILYP PRN PRN Reason: Constipation Senna (Senokot) 2 tab PO HS [facility] Sodium Biphosphate/Sodium Phosphate (Fleets Adult) 1 dose AR Q3-4DAYS PRN PRN Reason: Constipation Sodium Chloride (Saline Flush) 10 ml IV Q8 [facility] Last Admin: 02/23/17 14:25 Dose: Not Given Sodium Chloride (Saline Flush) 10 ml IV Q8 [facility] Last Admin: 02/23/17 14:25 Dose: Not Given Temazepam (Restoril) 15 mg PO HSP PRN PRN Reason: Insomnia Throat Lozenges (Cepacol) 1 lozenge PO PRN PRN PRN Reason: Sore Throat Medical - PN: A/P - Time Spent With Patient Total time spent is greater than 50% in coordination of care (as documented) at patient's floor/unit and/or counseling patient: (1) Forehead laceration Status: Acute Current Visit: Yes (2) Cerebellar ataxia Status: Chronic Current Visit: Yes (3) Hx of atrial fibrillation without current medication Status: Resolved Current Visit: Yes (4) Hyperglycemia Status: Acute Current Visit: Yes (5) Head trauma Status: Acute Current Visit: Yes (6) Abnormal EKG Status: Acute Current Visit: Yes (7) Anxiety Status: Chronic Current Visit: Yes (8) Femur fracture, left Status: Acute Current Visit: Yes - Narrative A/P Narrative: #1. Orthopedic. patient presents after a fall with severely comminuted left femur fracture. he is status post ORIF and renetta-arthroplasty. He seems to have tolerated the surgery well. -DVT prophylaxis will be per Dr. Tran's preference. we need to keep in mind the patient's recent head trauma. -Tdap was ordered. -begin physical therapy. #2. Endocrine. -patient presents with hyperglycemia, without known history of diabetes. Check hemoglobin A1c. Monitor with Accu-Cheks and cover with sliding scale insulin. #3. Status post fall, with significant head trauma.- so far, the patient is not showing any signs of concussion or other intracranial pathology. Continue to follow. #4. Cardiac. -Distant history of atrial fibrillation. If he received excessive fluids intraoperatively, This might recur. Continue to monitor. EKG is mildly abnormal, likely with repolarization abnormalities. we were unable to locate an old EKG today. Continue to monitor. #5. Neurologic. Patient has a history of cerebellar ataxia, and may also have a previous lower extremity neuropathy issue. He is at high risk for falls. physical therapy will evaluate after surgery, and try to minimize risk. #6. Psychiatric. -Patient reports a long-standing history of mild anxiety, which was previously treated with BuSpar. Cover with when necessary Ativan. #7. DVT prophylaxis: Per orthopedic surgeon. #8. CODE STATUS: Full code. He reports he does not have a formal POA, but would have his make any needed decisions. discontinue Toradol, as this may increase cardiac risk. Discontinue fleets enema, as this increases risk of kidney issues. discontinue temazepam Replace with when necessary Ativan, for history of anxiety. [id number] minutes was spent today, reviewing the patient's EKG with anesthesia, regarding surgery risk interviewing and examining the patient, reviewing labs, and writing orders. Medical - PN: Qual - Stroke Symptom Onset Unknown: No - VTE Deep Vein Thrombosis/Pulmonary Embolism Present on Admission: No
[2017-02-23] MEDS ORDERED: LORazepam 2 MG/ML VIAL IV PRN (19:25)
[2017-02-23] MEDS: ASPIRIN 325 MG ENTERIC COATED TABLET PO SCH (20:55)
[2017-02-23] MEDS: SENNOSIDES 1 TABLET PO SCH (20:55)
[2017-02-23] MEDS: DOCUSATE SODIUM 100 MG CAPSULE PO SCH (20:55)
[2017-02-23] MEDS: HYDROcodone/APAP 10/325MG TABLET PO PRN ×2 (20:56→23:57)
[2017-02-24] MEDS: HYDROcodone/APAP 10/325MG TABLET PO PRN ×4 (00:20→20:18)
[2017-02-24] MEDS: 0.45 % SODIUM CHLORIDE 1,000 ML IV SCH ×3 (02:00→20:18)
[2017-02-24] MEDS: 0.9 % SODIUM CHLORIDE 10 ML SYRINGE IV SCH ×6 (05:26→20:21)
[2017-02-24 07:57] LABS: ALT/SGPT 10 U/l (0-40); Albumin 3.3 gm/dL (3.2-5.2); Albumin/Globulin Ratio 1.7 (1.0-2.3); Alkaline Phosphatase 50 U/L (39-117); Bilirubin,Direct < 0.2 mg/dL (0.0-0.3); Blood Urea Nitrogen 10 mg/dl (8-23); Gamma Glutamyl Transpeptidase 10 U/L (8-61)
[2017-02-24] MEDS: DOCUSATE SODIUM 100 MG CAPSULE PO SCH ×2 (08:55→20:17)
[2017-02-24] MEDS: ASPIRIN 325 MG ENTERIC COATED TABLET PO SCH ×2 (08:55→20:17)
--- NOTE | 2017-02-24 10:16 | Internal Med Progress Note ---
Medical - PN: Subj Patient information: Note initiated : 02/24/17 at 10:16 am Patient: Kristian Cho a 71 y/o M admitted on 02/22/17 for Fall, Lt Hip Pain/Left Femur Fracture, Laceration. Interval history: February 22, 2017:History of present illness: Mr. Cho is a 71 year old gentleman who presented to the emergency room today after a fall. he has a long-standing history of cerebellar ataxia, and notes he goes through periodswhere his balance is worse. 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 He fell forward striking his head on a door jam, and then fell to the floor, landing on his left hip. In the emergency room he had to rather large lacerations of his forehead, which were sutured. Hip x-ray did show a severely comminuted ntertrochanteric fracture of the left hip. The patient was also noted to have elevated glucose of 167, with no reported history of diabetes. dr. Rios requested that I see the patient,, regarding elevated glucose, and other medical issues, during the perioperative period. the patient notes that he has been feeling fine lately. He has not had any recent fever or chills, headaches, blurry vision, new eye or ear symptoms, sore throat or cough. He denies chest pain or palpitations, shortness of breath or wheezing, abdominal pain. He is having nausea today, after receiving IV Dilaudid. Otherwise, he has not had vomiting or diarrhea. He notes he tends to struggle with chronic constipation intermittently. He denies dysuria. february 23: The patient's surgery was held briefly this morning as the official reading on the EKG expressed concern about acutecardiac injury. We did send for his last EKG from his primary care's office, but apparently they don't have an EKG on him. The patient really cannot give any history of any cardiac problems or cardiac symptoms and I suspect his EKG changeswere more related to repolarization. he therefore did undergo his surgery today. he appears to have tolerated surgery just fine. Currently,he is awake and alert. He is having fairly minimal pain. He refused Comer catheter placement, and is continuing to use a urinal. He denies fever or chills, chest pain or palpitations, shortness of breath, abdominal pain, nausea or vomiting diarrhea or constipation. February 24: Today, the patient says he is doing quite well. He does note, however, that he had some difficulty ambulating with physical therapy. 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 He was hoping to go straight home from the hospital, but admits that he does not feel entirely stable on his feet at the moment. Otherwise, his pain is relatively well controlled. He denies fever or chills. He continues to deny headache or feelings of confusion or blurry vision. He feels his forehead incisions are doing well. He denies chest pain or shortness of breath, abdominal pain, vomiting or diarrhea. He did have a bit of indigestion earlier today, for which she took Tums. He denies feeling of dysuria, but nurses note that he has been retaining more than 300 mL on his postvoid residuals. He has been declining Comer catheter. He has never been evaluated for urine retention before. - Constitutional Vitals: Vital Signs Temp Pulse Resp BP Pulse Ox 98.8 F 69 18 109/67 96 02/24/17 07:40 02/24/17 09:15 02/24/17 07:40 02/24/17 09:15 02/24/17 07:40 Period Temp Pulse Resp BP Sys/Swanson Pulse Ox Last 24 Hr 97.4 F-98.8 F 69-88 10-18 108-159/58-83 94-100 Intake and Output 02/23/17 02/24/17 02/24/17 21:59 05:59 13:59 Intake Total 940 / 940 1495 / 1495 Output Total 1025 / 1025 900 / 900 125 / 125 Balance -85 / -85 595 / 595 -125 / -125 Weight 159 lb Intake & Output: Intake & Output 02/23/17 02/24/17 02/24/17 21:59 05:59 13:59 Intake Total 940 / 940 1495 / 1495 Output Total 1025 / 1025 900 / 900 125 / 125 Balance -85 / -85 595 / 595 -125 / -125 Weight 159 lb Intake: IV 1345 / 1345 Sodium Chloride 0.45% 1, 1345 / 1345 000 ml @ 100 mls/hr IV . Q10H ELBA Rx#:[id number] Oral 940 / 940 150 / 150 Output: Void Amount 1025 / 1025 900 / 900 125 / 125 Straight 400 / 400 Other: Meal Dinner Percent of Meal Consumed 100% Feeding Ability Independent # Voids 1 On exam, he is awake and alert. His is in the room with him today. They are both in good spirits. Neck is supple without obvious JVD. Cardiac exam shows regular rate and rhythm. Lungs are clear to auscultation. Abdomen is soft and nontender. Extremities show no significant edema. He still seems to hold his left foot and external rotation. The right foot was tremoring today as I was talking with him, but he says it tends to do that when he gets anxious. Left hip incision area shows a clean and dry dressing. Neurologic exam: He continues with rather slow speech, but is alert and oriented. Exam, other than as noted above, is grossly nonfocal. Medical - PN: Obj Da - Labs CBC & Chem 7: 02/24/17 04:38 02/24/17 04:38 Labs: Abnormal Lab Results 02/24/17 02/24/17 02/23/17 04:38 04:38 03:55 Hgb 8.7 L Hct 25.1 L Anion Gap 7.0 L Glucose 127 H 137 H Calcium 8.4 L 8.5 L Total Protein 5.2 L 5.4 L Globulin 1.9 L 1.9 L Urine Ketones 02/22/17 17:50 Hgb Hct Anion Gap Glucose Calcium Total Protein Globulin Urine Ketones February 22: -Differential shows 84% granulocytes, but absolute granulocyte count is normal at 7700. Absolute lymphocyte count is a bit low at 800. pro time is 13, with INR of 1.0 Liver function tests are normal.extremities urinalysis is pending. EKG: Shows normal sinus rhythm at a rate of about 60, with left axis deviation. There is evidence for LVH with repolarization changes, including inverted T waves in leads V3 through V6. T waves are diffusely flattened. There is no old EKG to compare. Chest x-ray: Shows no acute disease. left hip x-ray: Shows severely comminuted, mildly impacted intertrochanteric fracture of the left hip with coxa vera angulation. Meds: Medications Acetaminophen (Tylenol) 650 mg PO Q6HP PRN PRN Reason: PAIN/FEVER > 101 Hydrocodone Bitart/Acetaminophen (Mcgrath 10/325mg) 0 tab PO Q4HP PRN PRN Reason: Pain Last Admin: 02/24/17 05:26 Dose: 2 tab Aspirin (Ecotrin) 325 mg PO BID [facility] Last Admin: 02/24/17 08:55 Dose: 325 mg Bisacodyl (Dulcolax) 10 mg AK Q2-3DAYS PRN PRN Reason: Constipation Docusate Sodium (Colace) 100 mg PO BID [facility] Last Admin: 02/24/17 08:55 Dose: 100 mg Hydromorphone HCl (Dilaudid) 0.5 mg IV Q15MIN PRN PRN Reason: Pain Last Admin: 02/23/17 08:11 Dose: 0.5 mg Hydromorphone HCl (Dilaudid) 0 mg IV Q2HP PRN PRN Reason: Pain Sodium Chloride (Sodium Chloride 0.45%) 1,000 mls @ 100 mls/hr IV .Q10H [facility] Last Admin: 02/24/17 10:04 Dose: Not Given Lorazepam (Ativan) 0.5 mg IV Q4-6HP PRN PRN Reason: ANXIETY/SEDATION Magnesium Hydroxide (Milk Of Magnesia) 30 ml PO BIDP PRN PRN Reason: Constipation Ondansetron HCl (Zofran) 4 mg IV Q4HP PRN PRN Reason: Nausea And Vomiting Oxycodone/Acetaminophen (Percocet 5-325 Mg) 1 tab PO Q4HP PRN PRN Reason: Pain Last Admin: 02/23/17 00:01 Dose: 1 tab Polyethylene Glycol (Miralax) 17 gm PO DAILYP PRN PRN Reason: Constipation Senna (Senokot) 2 tab PO HS [facility] Last Admin: 02/23/17 20:55 Dose: 2 tab Sodium Chloride (Saline Flush) 10 ml IV Q8 [facility] Last Admin: 02/24/17 05:26 Dose: 10 ml Sodium Chloride (Saline Flush) 10 ml IV Q8 [facility] Last Admin: 02/24/17 05:26 Dose: 10 ml Tamsulosin HCl (Flomax) 0.4 mg PO HS [facility] Throat Lozenges (Cepacol) 1 lozenge PO PRN PRN PRN Reason: Sore Throat Medical - PN: A/P - Time Spent With Patient Total time spent is greater than 50% in coordination of care (as documented) at patient's floor/unit and/or counseling patient: 25 - 35 minutes (1) Forehead laceration Status: Acute Current Visit: Yes (2) Cerebellar ataxia Status: Chronic Current Visit: Yes (3) Hx of atrial fibrillation without current medication Status: Resolved Current Visit: Yes (4) Hyperglycemia Status: Acute Current Visit: Yes (5) Head trauma Status: Acute Current Visit: Yes (6) Abnormal EKG Status: Acute Current Visit: Yes (7) Anxiety Status: Chronic Current Visit: Yes (8) Femur fracture, left Status: Acute Current Visit: Yes - Narrative A/P Narrative: #1. Orthopedic. patient presents after a fall with severely comminuted left femur fracture. he is status post ORIF and renetta-arthroplasty. He seems to have tolerated the surgery well. -DVT prophylaxis will be per Dr. Tran's preference. we need to keep in mind the patient's recent head trauma. He has been started on twice daily aspirin. I will add Pepcid for peptic ulcer prophylaxis. -Tdap was ordered. -Continue physical therapy. The patient originally was wanting to go straight home, but he is at very high risk for fall, and today he and his both agree that he should go to rehab first. #2. Endocrine. -patient presents with hyperglycemia, without known history of diabetes. -Hemoglobin A1c looks fine. In blood sugars are now running in the normal range. #3. Status post fall, with significant head trauma.- so far, the patient is not showing any signs of concussion or other intracranial pathology. Continue to follow. #4. Cardiac. -Distant history of atrial fibrillation. If he received excessive fluids intraoperatively, This might recur. Continue to monitor. EKG is mildly abnormal, likely with repolarization abnormalities. we were unable to locate an old EKG today. Continue to monitor. He does not appear to have had any adverse cardiac events during the perioperative period #5. Neurologic. Patient has a history of cerebellar ataxia, and may also have a previous lower extremity neuropathy issue. He is at high risk for falls. physical therapy will evaluate after surgery, and try to minimize risk. #6. Psychiatric. -Patient reports a long-standing history of mild anxiety, which was previously treated with BuSpar. Use when necessary Ativan. #7. DVT prophylaxis: Per orthopedic surgeon, twice daily aspirin for 1 month. #8. CODE STATUS: Full code. He reports he does not have a formal POA, but would have his make any needed decisions. #9. . High post void residuals. I will add Flomax. I discussed with he and his that this can cause brief orthostasis, and therefore will be given at night. They are encouraged to have him follow-up with a urologist after discharge, to look into the cause of his bladder difficulties. #10. Hematologic. The patient does have a significant postoperative anemia. We will continue to monitor this. So far he seems asymptomatic. Start on oral iron. #11. GI. Patient has had some mild indigestion. As needed Tums was ordered. He is also started on Pepcid for peptic ulcer disease prophylaxis. -He is also on docusate twice daily to help prevent constipation. He will especially need this while taking oral iron. discontinued Toradol, as this may increase cardiac risk. Discontinued fleets enema, as this increases risk of kidney issues. discontinued temazepam Replace with when necessary Ativan, for history of anxiety. [id number] minutes was spent today, reviewing the patient's test results, interviewing and examining him, reviewing plan of care with he and his , as well as our team meeting, and writing orders. Medical - PN: Qual - Stroke Symptom Onset Unknown: No - VTE Deep Vein Thrombosis/Pulmonary Embolism Present on Admission: No
[2017-02-24] MEDS ORDERED: CALCIUM CARBONATE 500 MG TAB.CHEW CHEWED PRN (11:05)
--- NOTE | 2017-02-24 11:49 | Orthopedic Progress Note ---
Subjective Patient information: Note initiated : 02/24/17 at 11:48 am Service Date, if different from initiated Date: [] Patient: Kristian Cho 71 y/o M admitted on 02/22/17 for Fall, Lt Hip Pain/Left Femur Fracture, Laceration. Chief Complaint: [Pt is stable this morning on post operative day 1 without any significant concerns or complaints. Patients vital signs have remained stable. Patients dressing is dry and exhibits a grossly intact neurovascular and neuromotor exam. Patients 10 point ROS is otherwise negative. ] Objective Vital signs: Vital Signs Temp Pulse Pulse Pulse Resp BP BP 02/24/17 09:15 69 72 109/67 114/72 02/24/17 07:40 98.8 F 69 18 02/24/17 07:20 02/24/17 03:06 98.2 F 75 14 02/23/17 23:54 98.4 F 70 14 02/23/17 20:30 02/23/17 20:10 02/23/17 20:00 97.4 F 78 14 02/23/17 19:25 02/23/17 19:24 02/23/17 16:19 02/23/17 16:05 02/23/17 15:50 02/23/17 15:35 02/23/17 15:20 02/23/17 15:14 02/23/17 15:04 02/23/17 14:51 02/23/17 14:35 02/23/17 14:19 02/23/17 14:09 98.2 F 80 16 02/23/17 13:30 80 14 02/23/17 13:15 88 14 02/23/17 13:14 02/23/17 12:58 98 F 85 10 L BP BP Pulse Ox 02/24/17 09:15 108/58 02/24/17 07:40 129/77 96 02/24/17 07:20 98 02/24/17 03:06 144/73 97 02/23/17 23:54 135/71 97 02/23/17 20:30 97 02/23/17 20:10 97 02/23/17 20:00 132/68 97 02/23/17 19:25 98 02/23/17 19:24 98 02/23/17 16:19 159/83 100 02/23/17 16:05 144/81 99 02/23/17 15:50 119/65 99 02/23/17 15:35 115/67 100 02/23/17 15:20 119/73 99 02/23/17 15:14 98 02/23/17 15:04 125/77 99 02/23/17 14:51 135/78 97 02/23/17 14:35 133/75 94 02/23/17 14:19 136/80 97 02/23/17 14:09 145/72 98 02/23/17 13:30 132/70 98 02/23/17 13:15 119/60 98 02/23/17 13:14 98 02/23/17 12:58 122/59 98 Intake and Output 02/23/17 02/24/17 02/24/17 21:59 05:59 13:59 Intake Total 940 / 940 1495 / 1495 Output Total 1025 / 1025 900 / 900 250 / 250 Balance -85 / -85 595 / 595 -250 / -250 Intake: IV 1345 / 1345 Sodium Chloride 0.45% 1, 1345 / 1345 000 ml @ 100 mls/hr IV . Q10H [facility] Rx#:[id number] Oral 940 / 940 150 / 150 Output: Void Amount 1025 / 1025 900 / 900 250 / 250 Straight 400 / 400 Other: Meal Dinner Breakfast Percent of Meal Consumed 100% 50% Feeding Ability Independent # Voids 1 Weight 159 lb Intake & Output: Intake & Output 02/23/17 02/24/17 02/24/17 21:59 05:59 13:59 Intake Total 940 / 940 1495 / 1495 Output Total 1025 / 1025 900 / 900 250 / 250 Balance -85 / -85 595 / 595 -250 / -250 Weight 159 lb Intake: IV 1345 / 1345 Sodium Chloride 0.45% 1, 1345 / 1345 000 ml @ 100 mls/hr IV . Q10H [facility] Rx#:[id number] Oral 940 / 940 150 / 150 Output: Void Amount 1025 / 1025 900 / 900 250 / 250 Straight 400 / 400 Other: Meal Dinner Breakfast Percent of Meal Consumed 100% 50% Feeding Ability Independent # Voids 1 Incision: Yes healing Incision clean and dry: Yes Dressing: Yes clean Weight bearing status: as tolerated Neurological exam IM: Yes motor sensory intact, Yes neurovascular intact Extremities exam IM: Yes Foot pink and warm, Yes neurovascular intact - Labs CBC & BMP: 02/24/17 04:38 02/24/17 04:38 Labs: 02/24/17 04:38 Hgb 8.7 L Hct 25.1 L Assessment and Plan (1) History of hemiarthroplasty of left hip Patient has been educated regarding wound care and dressings, follow up recommendations, and medication use. We will f/u with the patient within 2-3 weeks for wound check. Pt will require SNF prior to getting home. Status: Acute (2) Femur fracture, left Status: Acute Qualifiers: Encounter type: initial encounter Femur location: subtrochanteric Fracture type: closed Fracture alignment: displaced Qualified Code(s): S72.22XA - Displaced subtrochanteric fracture of left femur, initial encounter for closed fracture
--- NOTE | 2017-02-24 11:53 | Discharge Summary ---
Ortho Discharge - [facility] - Patient Instructions Diet: Regular Diet Activity: activity as tolerated, weight bearing as tolerated Total Hip Protocol: Follow activity instructions as provided by Physical Therapy. Dressing Care: Aquacel Ag - leave on for 5 days Additional Instructions: Discharge Instructions: Do the exercises at home that physical therapy gave you. Take your prescription, photo ID, insurance cards, and current medication list with you to your first physical therapy appointment. Take your prescription to case picker any medication or equipment (such as walker, crutches, toilet riser or C.P.M.) Wear comfortable clothing for your physical therapy. Weight bearing as tolerated. If you have the Aquacel Ag dressing, leave in place for 7 days then remove. If dressing becomes soiled (turns black), remove and use gauze 4x4 dressing and silvasorb ointment and change daily. Keep incision clean and dry. To avoid constipation while taking any narcotic pain medication, take an over the counter stool softener/laxative. Use your Cryocuff or ice packs as directed, on for 20 minutes at a time throughout the day. This and elevation will help with pain and swelling. Call your physician for fevers above 100.5 or pain not controlled by medication. Your prescriptions are with your discharge information. Some medications were electronically transmitted to your pharmacy of choice. - Problem Maintenance (1) History of hemiarthroplasty of left hip Status: Acute (2) Femur fracture, left Status: Acute Qualifiers: Encounter type: initial encounter Femur location: subtrochanteric Fracture type: closed Fracture alignment: displaced Qualified Code(s): S72.22XA - Displaced subtrochanteric fracture of left femur, initial encounter for closed fracture - Follow Up Plan Follow Up Appointments: Rossy Orr ARNP [Primary Care Provider] - Disposition: Xfer SNF Prognosis: Fair Rehab Potential: Good I certify that the patient requires SNF services: Yes Overall status at discharge: patient is progressing back to baseline - Orders For Discharge Prescriptions: Aspirin [Ecotrin] 325 mg PO BID #60 Docusate Sodium [Colace] 100 mg PO BID #60 capsule HYDROcodone/APAP 10/325MG [[place] 10/325Mg] 1 - 2 tab PO Q4HP PRN #75 tablet PRN Reason: Pain
[2017-02-24] MEDS: SENNOSIDES 1 TABLET PO SCH (20:17)
[2017-02-24] MEDS: FAMOTIDINE 20 MG TABLET PO SCH (20:17)
[2017-02-24] MEDS: FERROUS GLUCONATE 324 MG TABLET PO SCH (20:20)
[2017-02-24] MEDS ORDERED: TAMSULOSIN 0.4 MG CAPSULE PO SCH (21:00)
[2017-02-25] MEDS: 0.9 % SODIUM CHLORIDE 10 ML SYRINGE IV SCH ×2 (04:49→05:15)
[2017-02-25] MEDS: HYDROcodone/APAP 10/325MG TABLET PO PRN ×2 (05:14)
[2017-02-25] MEDS: 0.45 % SODIUM CHLORIDE 1,000 ML IV SCH (05:14)
[2017-02-25 06:46] LABS: ALT/SGPT 10 U/l (0-40); Albumin 3.2 gm/dL (3.2-5.2); Albumin/Globulin Ratio 1.6 (1.0-2.3); Alkaline Phosphatase 50 U/L (39-117); Bilirubin,Direct < 0.2 mg/dL (0.0-0.3); Blood Urea Nitrogen 12 mg/dl (8-23); Gamma Glutamyl Transpeptidase 8 U/L (8-61); Uric Acid 4.3 mg/dL (2.5-8.0)
--- NOTE | 2017-02-25 06:53 | Orthopedic Progress Note ---
Subjective Patient information: Note initiated : 02/25/17 at 6:51 am Service Date, if different from initiated Date: [] Patient: Kristian Cho 71 y/o M admitted on 02/22/17 for Fall, Lt Hip Pain/Left Femur Fracture, Laceration. Chief Complaint: [Improving with walking and pain is 3/10 but unable to transfer ] Objective Vital signs: Vital Signs Temp Pulse Pulse Pulse Pulse Resp BP 02/25/17 03:57 98.0 F 79 18 02/25/17 00:00 98.2 F 80 20 02/24/17 19:37 98.7 F 92 H 20 02/24/17 16:00 98.4 F 77 16 02/24/17 12:00 98.5 F 79 79 16 129/70 02/24/17 09:15 69 72 02/24/17 07:40 98.8 F 69 18 02/24/17 07:20 BP BP BP BP Pulse Ox 02/25/17 03:57 113/62 96 02/25/17 00:00 115/64 92 02/24/17 19:37 124/61 92 02/24/17 16:00 147/69 97 02/24/17 12:00 129/70 94 02/24/17 09:15 109/67 114/72 108/58 02/24/17 07:40 129/77 96 02/24/17 07:20 98 Intake and Output 02/24/17 02/25/17 02/25/17 21:59 05:59 13:59 Intake Total 1040 / 1040 100 / 100 Output Total 475 / 475 325 / 325 Balance 565 / 565 -225 / -225 Intake: Oral 1040 / 1040 100 / 100 Output: Void Amount 475 / 475 325 / 325 Other: Meal Dinner Percent of Meal Consumed 75% Feeding Ability Independent # Voids 1 2 Weight 160 lb Intake & Output: Intake & Output 02/24/17 02/25/17 02/25/17 21:59 05:59 13:59 Intake Total 1040 / 1040 100 / 100 Output Total 475 / 475 325 / 325 Balance 565 / 565 -225 / -225 Weight 160 lb Intake: Oral 1040 / 1040 100 / 100 Output: Void Amount 475 / 475 325 / 325 Other: Meal Dinner Percent of Meal Consumed 75% Feeding Ability Independent # Voids 1 2 Incision: Yes healing Incision clean and dry: Yes Dressing: Yes clean Weight bearing status: full Neurological exam IM: Yes oriented X3, Yes neurovascular intact Extremities exam IM: Yes Foot pink and warm, Yes neurovascular intact (D/C SNF TODAY) - Labs CBC & BMP: 02/25/17 04:53 02/25/17 04:53 Labs: 02/25/17 02/24/17 04:53 04:38 Hgb 8.0 L 8.7 L Hct 22.9 L 25.1 L
[2017-02-25] MEDS: ASPIRIN 325 MG ENTERIC COATED TABLET PO SCH (08:29)
[2017-02-25] MEDS: FAMOTIDINE 20 MG TABLET PO SCH (08:29)
[2017-02-25] MEDS: FERROUS GLUCONATE 324 MG TABLET PO SCH (08:29)
[2017-02-25] MEDS: DOCUSATE SODIUM 100 MG CAPSULE PO SCH (08:29)
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
[2017-02-25] MEDS ORDERED: MULTIVIT,THER IRON,CA,FA & MIN 1 TABLET PO SCH (12:00)
== END 2017-02-25 12:10 | DRG 470 ==
LOC: ED 08:24 → MEDSUR 12:22
PROVIDERS: ADMIT Orthopaedic Surgery; ATTEND Orthopaedic Surgery
PROC: ORIFHIP (2017-02-23 11:01)

== ENCOUNTER 2017-11-10 09:18 | Inpatient (IN) ==
[2017-11-10] MEDS ORDERED: ONDANSETRON 4 MG/2 ML VIAL IV ONE ×2 (09:28→14:15)
[2017-11-10] MEDS ORDERED: 0.9 % SODIUM CHLORIDE 250 ML IV SCH (09:30)
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
[2017-11-10] MEDS: HYDROmorphone 2 MG/ML VIAL IV PRN ×2 (09:41→11:27)
[2017-11-10] MEDS ORDERED: METHOCARBAMOL 1,000 MG/10 ML VIAL IV ONE (10:31)
[2017-11-10 10:32] LABS: Basophils # (Auto) 0 K/mcL (0.0-0.3); Basophils % (Auto) 0.2 % (0.0-2.0); Eosinophils # (Auto) 0.3 K/mcL (0.0-0.7); Eosinophils % (Auto) 2.9 % (0.0-7.0); Granulocytes % (Auto) 81.2 % (38.0-78.0); Lymphocytes # (Auto) 1.1 K/mcL (1.5-4.8); Mean Corpuscular HGB Conc 34.2 g/dL (31.0-36.0); Mean Corpuscular Hemoglobin 31.8 pg (26.0-34.0); Monocytes # (Auto) 0.6 K/mcL (0.1-0.9); Monocytes % (Auto) 5.7 % (1.0-12.0); Platelet Count 254 K/mcL (140-440); RBC 4.38 M/mcL (4.50-5.90); Red Cell Distribution Width 13.4 % (11.5-14.5)
[2017-11-10 10:48] LABS: ALT/SGPT 16 U/l (0-40); Albumin 4.5 gm/dL (3.2-5.2); Alkaline Phosphatase 129 U/L (39-117); Blood Urea Nitrogen 19 mg/dl (8-23)
--- NOTE | 2017-11-10 11:05 | Cat Scan Report ---
CLINICAL INFORMATION: Fall. Head injury. COMPARISON: MRI scan dated 04/17/2008 TECHNIQUE: Axial noncontrast-enhanced images through the brain. FINDINGS: No acute intracranial hemorrhage. No subdural hematoma. No subarachnoid hemorrhage. No intra-axial hematoma. There is a lacunar infarction in the left external capsule. This is new since 04/17/2008. There is cerebral atrophy with prominent ventricles and superficial subarachnoid spaces. There is a prominent cisterna magna. No acute abnormality. No detectable contusion brain injury. Basilar cisterns are negative. No calvarial fracture. Temporal bones are negative. IMPRESSION: 1. Cerebral atrophy. Chronic lacunar infarction in the left external capsule 2. No acute posttraumatic abnormality. The exam was performed using radiation dose optimization techniques including, but not limited to, automated exposure control, adjustment of the mA and/or kV according to patient size and use of iterative reconstruction technique. Interpreted and Authenticated by: Nelson Montes 11/10/17
--- NOTE | 2017-11-10 11:13 | Cat Scan Report ---
CLINICAL INFORMATION: Fall. Head injury. TECHNIQUE: Axial thin section images through the cervical spine. Sagittally and coronally reformatted images. COMPARISON: Cervical MRI scan dated 04/17/2008 FINDINGS: Multilevel degenerative disc disease. Severe degenerative disc narrowing at C4-C5, C5-C6, C6-C7. Mild wedging deformity of the T1 vertebral body. This is slightly more prominent than on prior examination but is not considered an acute compression fracture. No acute fracture lines identified. Spinous processes are intact. Facet joints are normally aligned. No perched or locked facet. There is multilevel degenerative facet arthropathy Odontoid process is negative. No lateral axial subluxation. Occipital condyles are normal. Lung apices are negative. No pneumothorax. The thoracic aorta is elongated and ectatic. The esophagus is somewhat dilated and contains fluid. Clinical correlation for history of dysphasia are recommended. Chest CT scan may be helpful to exclude a distal obstructing lesion. IMPRESSION: 1. Multilevel degenerative disc disease and facet arthropathy 2. No cervical spine fracture 3. Elongated and mildly ectatic thoracic aorta. Proximal thoracic esophagus is somewhat dilated and contains fluid. Chest CT scan may be helpful to exclude a distal obstructing lesion Interpreted and Authenticated by: Nelson Montes 11/10/17
--- NOTE | 2017-11-10 11:24 | XRay Report ---
CLINICAL INFORMATION: Fall. Hip pain. TECHNIQUE: AP supine portable chest x-ray COMPARISON: None. FINDINGS: Lungs are negative. No parenchymal infiltrate or contusion. Heart size and mediastinum are negative. Aortic knob is sharp. No detectable rib fracture. No pneumothorax or hemothorax. Clavicles are negative. IMPRESSION: Negative AP supine chest x-ray Interpreted and Authenticated by: Nelson Montes 11/10/17
--- NOTE | 2017-11-10 11:27 | XRay Report ---
CLINICAL INFORMATION: Fall. Right hip pain. TECHNIQUE: AP pelvis and lateral right hip COMPARISON: Previous examination dated 02/23/2017 FINDINGS: Previous left hip replacement. 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 No acute left hip fracture. Mildly comminuted intratrochanteric right hip fracture with varus angulation deformity. There is a fracture of the lesser trochanter. Pelvis is negative. No fracture. No lytic lesion. No detectable sacral fracture. Incidental note is made of previous hernia repair. Incidental note is also made of vascular calcification consistent with atherosclerotic disease IMPRESSION: 1. Right intertrochanteric hip fracture with varus angulation deformity. 2. Mild comminution. Fracture of the lesser trochanter. 3. Previous left total hip arthroplasty. Heterotopic bone formation as above. Interpreted and Authenticated by: Nelson Montes 11/10/17
[2017-11-10] MEDS ORDERED: OXYMETAZOLINE 1 SPRAY BOTTLE NAS PRN (12:08)
[2017-11-10] MEDS ORDERED: ceFAZolin 1 GM VIAL IV ONE (13:28)
[2017-11-10] MEDS ORDERED: ceFAZolin 1 GM VIAL ONE (13:57)
[2017-11-10] MEDS ORDERED: GLYCOPYRROLATE 0.2 MG/ML VIAL IV ONE (14:15)
[2017-11-10] MEDS ORDERED: MIDAZOLAM 2 MG/2 ML VIAL IV ONE (14:15)
[2017-11-10] MEDS ORDERED: PROPOFOL 200 MG/20 ML VIAL IV ONE (14:15)
[2017-11-10] MEDS ORDERED: LIDOCAINE HCL/PF 100 MG/5 ML SYRINGE IV ONE (14:15)
[2017-11-10] MEDS ORDERED: ePHEDrine 50 MG/ML AMPUL IV ONE (14:15)
[2017-11-10] MEDS ORDERED: KETAMINE 100 MG/ML ML IV ONE (14:15)
[2017-11-10] MEDS ORDERED: PHENYLEPHRINE 10 MG/ML VIAL IV ONE (14:15)
[2017-11-10] MEDS ORDERED: BISACODYL 10 MG SUPP.RECT PR PRN ×2 (15:15→16:34)
[2017-11-10] MEDS ORDERED: POLYETHYLENE GLYCOL 3350 17 GM PACKET PO PRN ×3 (15:15→16:34)
[2017-11-10] MEDS ORDERED: MAGNESIUM HYDROXIDE 30 ML ORAL.SUSP PO PRN ×2 (15:15→16:34)
[2017-11-10] MEDS ORDERED: KETOROLAC 15 MG/ML VIAL IV PRN (15:15)
[2017-11-10] MEDS ORDERED: oxyCODONE/APAP 5/325MG TABLET PO PRN (15:15)
[2017-11-10] MEDS ORDERED: 0.9 % SODIUM CHLORIDE 1,000 ML IV SCH ×2 (15:15→16:34)
[2017-11-10] MEDS ORDERED: FLEETS ADULT ENEMA PR PRN ×2 (15:15→16:34)
[2017-11-10] MEDS ORDERED: BENZOCAINE/MENTHOL 1 LOZENGE PO PRN (15:15)
--- NOTE | 2017-11-10 15:15 | Brief Operative Note ---
Date of procedure: 11/10/17 Pre-op diagnosis: Comminuted closed intertrochanteric hip fracture Post-op diagnosis: same Procedure: Open treatment internal fixation with long gamma nail of comminuted intertrochanteric hip fracture Grafts/Implants: Yes (13 x 420 120 deg gamma nail, 100 lag, ) Anesthesia: spinal, GLMA Findings: comminuted intertroch fracture Complications: none Surgeon: Carlton Rose Head Inspector: Satya Loredo Estimated blood loss (cc): 100 Specimens Removed/Pathology: none sent Condition: stable Disposition: PACU
[2017-11-10] MEDS ORDERED: ONDANSETRON 4 MG/2 ML VIAL IV PRN ×2 (15:24→16:34)
[2017-11-10] MEDS ORDERED: fentaNYL 100 MCG/2 ML VIAL IV PRN (15:24)
[2017-11-10] MEDS ORDERED: PROMETHAZINE 25 MG/ML VIAL IV PRN (15:24)
[2017-11-10] MEDS ORDERED: ACETAMINOPHEN 1,000 MG/100 ML BOTTLE IV ONE (15:24)
[2017-11-10] MEDS ORDERED: METHOCARBAMOL 1,000 MG/10 ML VIAL IV PRN (15:24)
[2017-11-10] MEDS ORDERED: IPRATROPIUM/ALBUTEROL 3 ML AMPUL.NEB NEB PRN (15:24)
[2017-11-10] MEDS ORDERED: MEPERIDINE 25 MG/ML SYRINGE IV PRN (15:24)
[2017-11-10] MEDS ORDERED: LACTATED RINGERS 1,000 ML IV SCH (15:30)
--- NOTE | 2017-11-10 16:00 | Operative Note ---
DATE OF OPERATION: 11/10/2017 PREOPERATIVE DIAGNOSIS: Right closed comminuted intertrochanteric hip fracture. POSTOPERATIVE DIAGNOSIS: Right closed comminuted intertrochanteric hip fracture. PROCEDURE PERFORMED: Open treatment and internal fixation of the right closed comminuted intertrochanteric hip fracture with fixation using a long intramedullary Gamma nail. SURGEON: Carlton Rose M.D. URANIUM PROCESSING SUPERVISOR: Sadi Loredo PA-C. ANESTHESIA: Spinal plus general. DRAINS: None. SPECIMENS: None. COMPLICATIONS: None. BLOOD LOSS: 100 mL. POSTOPERATIVE CONDITION: Stable. INDICATIONS FOR SURGERY: This is a 72-year-old male who fell earlier this morning and had pain in his hip and inability to bear weight. X-rays done in the emergency department showed the above fracture. FINDINGS AT SURGERY: Comminuted fracture, intertrochanteric that reduced well with traction and internal rotation. Post-fixation showed excellent alignment and hardware placement. PROCEDURE IN DETAIL: The patient had been seen preoperatively. Informed consent had been obtained after discussion of risks and benefits of surgery. Risks including, but not limited to, bleeding; infection; injury to nerves, blood vessels other surrounding structures; anesthetic risks; nonunion or malunion of the fracture; failure of hardware fixation; possibility of needing further surgery; DVT and pulmonary embolus risks. He understood these risks and wished to proceed. Correct operative site was marked and patient received spinal anesthesia. He was then taken to the operating room and LMA general given. He was carefully positioned on the fracture table and then traction and internal rotation were placed on the leg. Fluoro was brought in and adjustments made until the reduction was nearly anatomic of the two main fragments. We then checked the lateral view as well. This showed excellent alignment as well. We then prepped and draped the hip and leg in normal sterile fashion. Time out was performed verifying patient name, operative site, and plan. Incision was made proximal to the trochanter with a scalpel through skin and subcutaneous tissue. Hemostasis was obtained with Bovie cautery. We then incised the IT band in line and then using a guide pin placed the guide pin at the tip of the trochanter. This was advanced down to the lesser trochanter level. We then checked our lateral. It was a slightly posterior starting point, so we used the Honeycomb drill guide and placed a second guide pin more anteriorly. We rechecked fluoro. This was centered, so we went ahead and used the opening reamer. We then used a ball-tip guidewire and went down the shaft to the level of the patella. We used a ruler to measure about 420. We then started reaming. It was readily apparent he had severe osteoporosis and minimal reaming was necessary. We jumped up by 2 mm sizes until we got to a 15 without difficulty, so we opened a 13 mm, 120 degree, 420 length Gamma nail. This was passed over our guide pin until the position was appropriate for the lag screw in the center of the head. We then made a stab incision laterally and spread down to bone. We drilled the lateral cortex and then used the guide pin and placed this central in the head on both AP and lateral views. This was taken up to about 10 mm short of the articular surface. A ruler measured 100 mm length. We then used the step reamer and reamed up to 100 mm. We then opened a 100 mm lag screw. This was passed up to the level of the base of the threads, and then we placed the locking screw in the proximal end of the nail, advancing this until it was fully locked and then backing off a quarter turn to allow sliding compression. We then removed our jig and placed a standard end cap. We then took traction off the leg and abducted it. We took the C-arm down to the knee and got perfect circles distally. A stab incision was made over the dynamic hole. We spread down to bone and then using the short drill guide, drilled through the distal dynamic hole. We depth gauged to 45, opened a 45 screw and placed this. We then took our final lateral at the knee which showed the screws centered in the hole. We then took an AP at the knee which showed the screw the exact appropriate length. We then went up to the hip and took final AP and lateral images as well, and these were saved. We then irrigated copiously with saline. The IT band proximally was closed with a #1 Vicryl running stitch, 2-0 Monocryl for subcutaneous, and reilly for skin. We did irrigate prior to closure. Monocryl and reilly were used for the lag screw hole and then reilly just for the distal interlock. Xeroform and sterile dressing were applied. The patient was then awakened, extubated, and transferred to the recovery room in satisfactory condition. MADY:ines Job ID: [id number] Doc ID: [id number] Carlton Rose MD
--- NOTE | 2017-11-10 16:07 | History and Physical Report ---
DATE OF ADMISSION: 11/10/2017 CHIEF COMPLAINT: Right hip pain after a fall. HISTORY: This is a 72-year-old male with history of ataxia who was washing his dishes this morning and twisted, and as he turned stated that he landed on his right hip. He had severe pain, inability to bear weight. He denied loss of consciousness. 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 PAST SURGICAL HISTORY: Left hemiarthroplasty for femoral neck fracture last year. MEDICATIONS: He takes no medications regularly. ALLERGIES: No known drug allergies. SOCIAL HISTORY: No tobacco use. No alcohol or drug use. FAMILY HISTORY: Noncontributory. REVIEW OF SYSTEMS: Negative for fever, chills, chest pain, shortness of breath, nausea or vomiting, and substantial weakness. PHYSICAL EXAMINATION: GENERAL: He appears his stated age, in no acute distress. EXTREMITIES: Bilateral upper extremities and left lower extremity are normal to inspection, range of motion, stability and strength. The right lower extremity on inspection shows shortening and external rotation. He has limited range of motion secondary to pain. There is gross instability of fracture. Strength is limited about 1/5 with the hip. Sensation is intact grossly to light touch distally. Pedal pulses 2+. SKIN: Intact with a very slight abrasion around his eye. PSYCH: He is oriented to person and place. Mood and affect are appropriate. IMAGING: X-ray reviewed shows a comminuted intertrochanteric right hip fracture. IMPRESSION: Right closed comminuted intertrochanteric hip fracture in a 72-year-old male secondary to a standing-level fall. PLAN: I recommend hospitalist consultation for medical management and postoperative following. I would recommend we proceed with open treatment and internal fixation of the right comminuted intertrochanteric hip fracture with intramedullary fixation using a long Gamma nail given his history of falls. Risks of surgery were discussed, which include but not limited to, bleeding; infection; injury to nerves, blood vessels other surrounding structures; anesthetic risks; nonunion or malunion of fracture; failure of hardware fixation; possibility of needing further surgery. He understands and wished to proceed. MADY:ines Job ID: [id number] Doc ID: [id number] Carlton Rose MD
--- NOTE | 2017-11-10 16:21 | XRay Report ---
CLINICAL INFORMATION: Right hip fracture TECHNIQUE: AP and lateral right hip and femur COMPARISON: Preoperative evaluation dated 11/13/2017 FINDINGS: Status post open reduction and internal fixation of right intertrochanteric hip fracture. There is a gamma nail configuration with long length intramedullary nail. Intramedullary nail extends a length of the right femur. Lesser trochanter is fractured and displaced IMPRESSION: Status post open reduction and internal fixation of right intertrochanteric hip fracture. Interpreted and Authenticated by: Nelson Montes 11/10/17
[2017-11-10] MEDS ORDERED: traZODone HCL 50 MG TABLET PO PRN (16:34)
[2017-11-10] MEDS ORDERED: HYDROmorphone 2 MG/ML VIAL IV PRN (16:34)
[2017-11-10] MEDS ORDERED: MAGNESIUM SULFATE 2 GM/50 ML BAG IV PRN (16:34)
[2017-11-10] MEDS ORDERED: POTASSIUM CHLORIDE 20 MEQ PACKET PO PRN (16:34)
[2017-11-10] MEDS ORDERED: ACETAMINOPHEN 325 MG TABLET PO PRN (16:34)
--- NOTE | 2017-11-10 16:39 | XRay Report ---
CLINICAL INFORMATION: Right hip fracture TECHNIQUE: 0.8 minutes fluoroscopy utilized by Dr. Rose. Open reduction and internal fixation of right intertrochanteric hip fracture performed. IMPRESSION: Intraoperative fluoroscopy as above Interpreted and Authenticated by: Nelson Montes 11/10/17
[2017-11-10] MEDS ORDERED: WARFARIN 5 MG TABLET PO ONE (17:00)
[2017-11-10] MEDS: 0.9 % SODIUM CHLORIDE 10 ML SYRINGE IV SCH ×2 (17:21→22:08)
[2017-11-10] MEDS: 0.9 % SODIUM CHLORIDE 1,000 ML IV SCH (17:52)
[2017-11-10] MEDS: DOCUSATE SODIUM 100 MG CAPSULE PO SCH (19:47)
[2017-11-10] MEDS: BENZOCAINE/MENTHOL 1 LOZENGE PO PRN ×2 (19:47→23:56)
[2017-11-10] MEDS: SENNOSIDES/DOCUSATE SODIUM 1 TAB TABLET PO SCH (19:47)
--- NOTE | 2017-11-10 20:24 | Consultation ---
DATE OF CONSULTATION: 11/10/2017 DATE OF CONSULTATION: 11/10/2017 REQUESTING PHYSICIAN: Carlton Rose MD REASON FOR CONSULTATION: Management of medical issues. REASON FOR ADMISSION: Fall with right hip fracture. HISTORY OF CHIEF COMPLAINT: Kristian is a 72-year-old with a history of cerebellar ataxia, who got off balance and fell, landing on his right side, sustaining trauma. He was evaluated in the ER and was found to have a right hip fracture. The patient was taken directly from the ER to the operating room for hip fracture repair by Dr. Rose. Postoperatively, Hospitalist Service was consulted for evaluation of medical issues. The patient was seen in stable state postoperatively. He was able to provide answers to most of the questions. He endorses history is as above. He denies loss of consciousness, incontinence, seizurelike episode. He denies lightheadedness, dizziness, chest palpitation. He endorses to falls secondary to getting off balance from his chronic cerebellar ataxia. He normally uses a walker; however, he could not grasp ahold before he fell. REVIEW OF SYSTEMS: A 10-point review of system was performed; negative except the ones discussed above. PAST MEDICAL HISTORY: Significant for: 1. History of anxiety disorder. 2. Cerebellar ataxia. 3. 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 4. Atrial fibrillation which self-resolved. CURRENT MEDICATIONS: 1. Buspirone. 2. Tylenol. SOCIAL HISTORY: The patient is with Carmella and lives in the [place]. No history of alcoholism. Quit smoking 25 years ago. No history of substance abuse. FAMILY HISTORY: Coronary artery disease in father, pancreatic cancer in brother. PHYSICAL EXAMINATION: GENERAL EXAM: The patient is alert, oriented. Denies any active distress. VITAL SIGNS: Blood pressure 122/72, respiratory rate 16, temperature 98.6, pulse 81, sats 100 percent on 2 liters of oxygen. HEENT: Pupils symmetric. Oral cavity dry. No ear or nose discharge. Head: Normocephalic and atraumatic. NECK: No lymphadenopathy. HEART: S1, S2, regular rhythm. No murmur. CHEST: Clear to auscultation. ABDOMEN: Soft, nontender. LOWER EXTREMITY EXAMINATION: Right lower extremity covered in sterile dressing, but no joint swelling or erythema. SKIN: No suspicious lesions. PSYCHIATRIC: Alert, cooperative. No anxiety. NEURO: Nonfocal. LABS AND IMAGING: White count 10.6, hemoglobin 13.9, and platelets 254. INR 1.1. Sodium 141, potassium 3.5, creatinine 0.8, BUN 19. LFTs unremarkable. ASSESSMENT AND PLAN: A 72-year-old with history of cerebellar ataxia, sustained a right hip fracture. 1. Right hip fracture, status post open reduction, internal fixation, gamma nail of comminuted intertrochanteric fracture. 2. Pain management. Will be as per orthopedics. 3. Deep vein thrombosis prophylaxis. Will be as per orthopedics. 4. Current medical issues: None significant except for history of cerebellar ataxia and anxiety disorder. At this time, patient is refusing to take BuSpar. PLAN: 1. Continue postoperative management per orthopedics. 2. No further recommendation from hospitalist service. 3. Overall, a low complexity consult. We will continue to follow along. AA:la Job ID: [id number] Doc ID: [id number] Arnoldo BUCHANAN
[2017-11-10] MEDS ORDERED: SENNOSIDES 1 TABLET PO SCH ×2 (21:00)
[2017-11-10] MEDS ORDERED: DOCUSATE SODIUM 100 MG CAPSULE PO SCH ×2 (21:00)
[2017-11-10] MEDS: ACETAMINOPHEN 1,000 MG/100 ML BOTTLE IV PRN (21:55)
[2017-11-10] MEDS: ceFAZolin 1 GM VIAL IV SCH (21:55)
[2017-11-10] MEDS ORDERED: ceFAZolin 1 GM VIAL IV SCH (22:00)
[2017-11-10] MEDS: oxyCODONE/APAP 5/325MG TABLET PO PRN (23:54)
[2017-11-11] MEDS ORDERED: METHOCARBAMOL 750 MG TABLET PO PRN (02:13)
[2017-11-11] MEDS: oxyCODONE/APAP 5/325MG TABLET PO PRN ×4 (05:04→23:51)
[2017-11-11] MEDS: 0.9 % SODIUM CHLORIDE 1,000 ML IV SCH (05:04)
[2017-11-11] MEDS: 0.9 % SODIUM CHLORIDE 10 ML SYRINGE IV SCH ×3 (05:28→23:51)
[2017-11-11] MEDS: ceFAZolin 1 GM VIAL IV SCH (06:07)
[2017-11-11 06:40] LABS: Mean Cell Volume 93.1 fL (80.0-100.0); Mean Corpuscular HGB Conc 34.4 g/dL (31.0-36.0); Mean Corpuscular Hemoglobin 32.1 pg (26.0-34.0); Platelet Count 186 K/mcL (140-440); RBC 3.04 M/mcL (4.50-5.90); Red Cell Distribution Width 13.2 % (11.5-14.5)
[2017-11-11 07:20] LABS: ALT/SGPT 11 U/l (0-40); Albumin 3.3 gm/dL (3.2-5.2); Albumin/Globulin Ratio 1.7 (1.0-2.3); Alkaline Phosphatase 74 U/L (39-117); Bilirubin,Direct < 0.2 mg/dL (0.0-0.3); Blood Urea Nitrogen 12 mg/dl (8-23); Gamma Glutamyl Transpeptidase 9 U/L (8-61); Uric Acid 3.9 mg/dL (2.5-8.0)
[2017-11-11] MEDS: DOCUSATE SODIUM 100 MG CAPSULE PO SCH ×2 (08:36→19:55)
[2017-11-11 08:38] LABS: Band Neutrophils % 5 % (0-10); Lymphocytes % 4 % (15-49); Monocytes % (Manual) 6 % (1-12); Platelet Estimate NORMAL (NORMAL); RBC Morphology NORMAL (NORMAL); Segmented Neutrophils % 85 % (38-78)
[2017-11-11] MEDS: ACETAMINOPHEN 1,000 MG/100 ML BOTTLE IV PRN (09:20)
--- NOTE | 2017-11-11 13:38 | Orthopedic Progress Note ---
Orthopedics - Auxillary Note - Subjective Patient Information: Note initiated : 11/11/17 at 1:37 pm Service Date, if different from initiated Date: [] Patient: Kristian Cho 72 y/o M admitted on 11/10/17 for Right Hip Pain, Fall/ Closed Right Hip Fracture. Chief Complaint: Mild pain and spasm L hip. bandages c/d/i nvi-distal Vital Signs Temp Pulse Resp BP Pulse Ox 11/11/17 11:32 97 11/11/17 11:23 97.5 F 16 125/61 97 11/11/17 07:14 98.5 F 18 136/73 97 11/11/17 04:00 97.4 F 65 18 115/62 96 11/11/17 00:00 98.5 F 63 18 129/66 94 11/10/17 19:36 99 11/10/17 19:14 97.5 F 71 18 117/70 98 11/10/17 18:14 70 128/76 97 11/10/17 17:30 63 134/80 99 11/10/17 17:00 65 128/74 100 11/10/17 16:45 71 86 L 11/10/17 16:30 66 113/76 99 11/10/17 16:14 74 132/73 98 11/10/17 16:10 98.6 F 81 16 122/72 100 11/10/17 16:00 98.6 F 81 16 122/72 99 11/10/17 15:52 80 17 119/61 97 11/10/17 15:47 82 15 98/61 97 11/10/17 15:42 84 17 117/70 97 11/10/17 15:37 94 H 11 L 106/78 100 11/10/17 15:32 71 10 L 125/69 100 11/10/17 15:27 97.2 F 74 10 L 128/79 99 Intake and Output 11/10/17 11/11/17 11/11/17 21:59 05:59 13:59 Intake Total 1840 / 1840 1300 / 1300 520 / 520 Output Total 1050 / 1050 1150 / 1150 Balance 790 / 790 150 / 150 520 / 520 Intake: IV 1100 / 1100 400 / 400 Sodium Chloride 0.9% 1,000 ml @ 1000 / 1000 300 / 300 100 mls/hr IV .Q10H [facility] Rx#: [id number] Oral 240 / 240 200 / 200 120 / 120 IV - Manual Only 1600 / 1600 Output: Urine Catheter Amount 700 / 700 1150 / 1150 Estimated Blood Loss 350 / 350 Other: Meal Dinner Nourishment/Supplement Breakfast Percent of Meal Consumed 25% 100% 100% Feeding Ability Independent Independent Weight 143 lb Laboratory Results - last 24 hr 11/11/17 11/11/17 11/11/17 04:49 04:49 04:49 WBC 9.7 RBC 3.04 L Hgb 9.8 L Hct 28.3 L MCV 93.1 MCH 32.1 MCHC 34.4 RDW 13.2 Plt Count 186 MPV 8.0 Total Counted 100 Seg Neutrophils % 85 H Band Neutrophils % 5 Lymphocytes % 4 L Monocytes % (Manual) 6 Platelet Estimate Normal RBC Morphology Normal PT 15.0 H INR 1.2 H Sodium 138 Potassium 4.5 Chloride 104 Carbon Dioxide 24 Anion Gap 10.0 BUN 12 Creatinine 0.7 GFR Calculation 94 Glucose 125 H Uric Acid 3.9 Calcium 8.3 L Phosphorus 3.7 Magnesium 2.0 Total Bilirubin 0.5 Direct Bilirubin < 0.2 GGT 9 AST 14 ALT 11 Alkaline Phosphatase 74 Lactate Dehydrogenase 156 Total Protein 5.2 L Albumin 3.3 Globulin 1.9 L Albumin/Globulin Ratio 1.7 Triglycerides 40 s/p L hip IM nailing for Intertroch fx-stable mobilize with PT
[2017-11-11] MEDS: WARFARIN 5 MG TABLET PO SCH (13:42)
[2017-11-11] MEDS: KETOROLAC 15 MG/ML VIAL IV PRN ×2 (17:04→23:51)
--- NOTE | 2017-11-11 17:15 | Internal Med Progress Note ---
Medical - PN: Subj Patient information: Note initiated : 11/11/17 at 5:13 pm Service Date, if different from initiated Date: [] Patient: Kristian Cho 72 y/o M admitted on 11/10/17 for Right Hip Pain, Fall/ Closed Right Hip Fracture. Chief Complaint: [] Interval history: 70-year-old with history of cerebellar ataxia admitted after fall/90 fracture. Patient taken to surgery from ER. Hospitalist consult for management of medical issues. 11/11- no overnight events. No concerns per staff. Tolerating physical therapy. Tolerating diet. C/o rt thigh spasms. Postoperative pain good control. Postoperative care/DVT prophylaxis as per orthopedics. - Constitutional Vitals: Vital Signs Temp Pulse Resp BP Pulse Ox 97.5 F 65 18 127/69 98 11/11/17 11:23 11/11/17 04:00 11/11/17 15:36 11/11/17 15:36 11/11/17 15:36 Period Temp Pulse Resp BP Sys/Swanson Pulse Ox Last 24 Hr 97.4 F-98.5 F 63-71 16-18 115-136/61-80 94-99 Intake and Output 11/11/17 11/11/17 11/11/17 05:59 13:59 21:59 Intake Total 1300 / 1300 1320 / 1320 300 / 300 Output Total 1150 / 1150 1300 / 1300 200 / 200 Balance 150 / 150 20 / 20 100 / 100 Intake & Output: Intake & Output 11/11/17 11/11/17 11/11/17 05:59 13:59 21:59 Intake Total 1300 / 1300 1320 / 1320 300 / 300 Output Total 1150 / 1150 1300 / 1300 200 / 200 Balance 150 / 150 20 / 20 100 / 100 Intake: IV 1100 / 1100 400 / 400 Sodium Chloride 0.9% 1,000 ml @ 1000 / 1000 300 / 300 100 mls/hr IV .Q10H [facility] Rx#: [id number] Oral 200 / 200 920 / 920 300 / 300 Output: Urine Catheter Amount 1150 / 1150 1300 / 1300 Void Amount 200 / 200 Other: Meal Nourishment/Supplement Lunch Percent of Meal Consumed 100% 100% Feeding Ability Independent Independent # Voids 1 General appearance: cooperative, no acute distress Exam: no acute changes nonlabored breathing Medical - PN: Obj Da - Labs CBC & Chem 7: 11/11/17 04:49 11/11/17 04:49 Labs: Abnormal Lab Results 11/11/17 11/11/17 11/11/17 04:49 04:49 04:49 RBC 3.04 L Hgb 9.8 L Hct 28.3 L Gran % Lymph % (Auto) Gran # Lymph # (Auto) Seg Neutrophils % 85 H Lymphocytes % 4 L PT 15.0 H INR 1.2 H Glucose 125 H Calcium 8.3 L Alkaline Phosphatase Total Protein 5.2 L Globulin 1.9 L 11/10/17 11/10/17 09:40 09:40 RBC 4.38 L Hgb Hct 40.7 L Gran % 81.2 H Lymph % (Auto) 10.0 L Gran # 8.6 H Lymph # (Auto) 1.1 L Seg Neutrophils % Lymphocytes % PT INR Glucose 143 H Calcium Alkaline Phosphatase 129 H Total Protein Globulin Meds: Medications Acetaminophen (Tylenol) 650 mg PO Q4-6HP PRN PRN Reason: PAIN/FEVER > 101 Bisacodyl (Dulcolax) 10 mg IN Q2-3DAYS PRN PRN Reason: Constipation Docusate Sodium (Colace) 100 mg PO BID [facility] Last Admin: 11/11/17 08:36 Dose: 100 mg Heparin Sodium (Porcine) (Heparin) 5,000 unit SQ Q12 [facility] Hydromorphone HCl (Dilaudid) 0 mg IV Q4HP PRN PRN Reason: PAIN LEVEL > 6 Magnesium Sulfate (Magnesium Sulfate) 2 gm in 50 mls @ 50 mls/hr IV UD PRN PRN Reason: MG = or < 1.7 Acetaminophen (Ofirmev) 1,000 mg in 100 mls @ 200 mls/hr IV Q6HP PRN PRN Reason: PAIN/FEVER > 101 Last Infusion: 11/11/17 09:53 Dose: Infused Ketorolac Tromethamine (Toradol) 15 mg IV Q6HP PRN PRN Reason: Pain Stop: 11/12/17 15:17 Last Admin: 11/11/17 17:04 Dose: 15 mg Magnesium Hydroxide (Milk Of Magnesia) 30 ml PO BIDP PRN PRN Reason: Constipation Methocarbamol (Robaxin) 750 mg PO Q6HP PRN PRN Reason: Muscle Spasm Last Admin: 11/11/17 13:42 Dose: 750 mg Morphine Sulfate (Morphine) 0 mg IV Q1HP PRN PRN Reason: PAIN LEVEL > 6 Ondansetron HCl (Zofran) 4 mg IV Q4-6HP PRN PRN Reason: Nausea And Vomiting Oxycodone/Acetaminophen (Percocet 5-325 Mg) 0 tab PO Q4HP PRN PRN Reason: PAIN LEVEL 3-6 Last Admin: 11/11/17 14:24 Dose: 1 tab Polyethylene Glycol (Miralax) 17 gm PO DAILYP PRN PRN Reason: Constipation Potassium Chloride (Klor-Con) 40 meq PO DAILYP PRN PRN Reason: K+ < 3.5 Senna/Docusate Sodium (Senna Plus Tablet) 2 tab PO HS [facility] Last Admin: 11/10/17 19:47 Dose: 2 tab Sodium Biphosphate/Sodium Phosphate (Fleets Adult) 1 dose IN Q3-4DAYS PRN PRN Reason: Constipation Sodium Chloride (Saline Flush) 10 ml IV Q8 [facility] Last Admin: 11/11/17 13:49 Dose: 10 ml Throat Lozenges (Cepacol) 1 lozenge PO PRN PRN PRN Reason: Sore Throat Last Admin: 11/10/17 23:56 Dose: 1 lozenge Trazodone HCl (Desyrel) 50 mg PO HSP PRN PRN Reason: Insomnia Warfarin Sodium (Coumadin Per Pharmacy) 1 order PO UD [facility] Warfarin Sodium (Coumadin) 5 mg PO DAILY@1400 [facility] Last Admin: 11/11/17 13:42 Dose: 5 mg Medical - PN: A/P - Time Spent With Patient Total time spent is greater than 50% in coordination of care (as documented) at patient's floor/unit and/or counseling patient: less than 15 minutes - Narrative A/P Narrative: * hip fracture postop day 1-managed by orthopedics * Pain management per orthopedics * DVT prophylaxis per orthopedics * Anxiety disorder currently stable * Full code plan Postoperative care per orthopedics No further recommendations from hospitalist service Medical - PN: Qual - VTE Deep Vein Thrombosis/Pulmonary Embolism Present on Admission: No
[2017-11-11] MEDS: SENNOSIDES/DOCUSATE SODIUM 1 TAB TABLET PO SCH (19:55)
[2017-11-11] MEDS ORDERED: HEPARIN 5,000 UNIT/ML VIAL SQ SCH (21:00)
[2017-11-12] MEDS: oxyCODONE/APAP 5/325MG TABLET PO PRN (04:10)
[2017-11-12] MEDS: KETOROLAC 15 MG/ML VIAL IV PRN (06:07)
[2017-11-12] MEDS: 0.9 % SODIUM CHLORIDE 10 ML SYRINGE IV SCH ×3 (06:07→21:06)
[2017-11-12 06:19] LABS: Mean Cell Volume 93.2 fL (80.0-100.0); Mean Corpuscular HGB Conc 34.6 g/dL (31.0-36.0); Mean Corpuscular Hemoglobin 32.3 pg (26.0-34.0); Platelet Count 130 K/mcL (140-440); RBC 2.64 M/mcL (4.50-5.90); Red Cell Distribution Width 13.5 % (11.5-14.5)
[2017-11-12 06:20] LABS: ALT/SGPT 10 U/l (0-40); Albumin 3.3 gm/dL (3.2-5.2); Albumin/Globulin Ratio 1.7 (1.0-2.3); Alkaline Phosphatase 64 U/L (39-117); Bilirubin,Direct < 0.2 mg/dL (0.0-0.3); Blood Urea Nitrogen 15 mg/dl (8-23); Gamma Glutamyl Transpeptidase 9 U/L (8-61)
[2017-11-12 06:31] LABS: Basophils % (Manual) 1 % (0-2); Lymphocytes % 13 % (15-49); Monocytes % (Manual) 11 % (1-12); Platelet Estimate DECREASED (NORMAL); RBC Morphology NORMAL (NORMAL); Segmented Neutrophils % 75 % (38-78)
[2017-11-12] MEDS: DOCUSATE SODIUM 100 MG CAPSULE PO SCH ×2 (09:16→21:06)
[2017-11-12] MEDS: ACETAMINOPHEN 1,000 MG/100 ML BOTTLE IV PRN ×3 (10:16→23:28)
[2017-11-12] MEDS: WARFARIN 5 MG TABLET PO SCH (13:52)
--- NOTE | 2017-11-12 16:08 | Internal Med Progress Note ---
Medical - PN: Subj Patient information: Note initiated : 11/12/17 at 4:04 pm Service Date, if different from initiated Date: [] Patient: Kristian Cho 72 y/o M admitted on 11/10/17 for Right Hip Pain, Fall/ Closed Right Hip Fracture. Chief Complaint: [] Interval history: 70-year-old with history of cerebellar ataxia admitted after fall/90 fracture. Patient taken to surgery from ER. Hospitalist consult for management of medical issues. 11/11- no overnight events. No concerns per staff. Tolerating physical therapy. Tolerating diet. C/o rt thigh spasms. Postoperative pain good control. Postoperative care/DVT prophylaxis as per orthopedics. 11/12 patient seen and examined no acute. participating in physical therapy well, Not complaining about pain today, hb dropped, but hemodynamically stable, likely post op drop, monitor for now Pertinent ROS: Denies headache, dizziness Denies chest pain, palpitations Denies cough or shortness of breath Denies abdominal pain, nausea or vomiting. - Constitutional Vitals: Vital Signs Temp Pulse Resp BP Pulse Ox 98.4 F 90 20 145/73 96 11/12/17 12:00 11/12/17 12:00 11/12/17 12:00 11/12/17 12:00 11/12/17 12:00 Period Temp Pulse Resp BP Sys/Swanson Pulse Ox Last 24 Hr 98.2 F-98.8 F 62-96 20-20 128-156/62-81 94-96 Intake and Output 11/12/17 11/12/17 11/12/17 05:59 13:59 21:59 Intake Total 175 / 175 100 / 100 Output Total 350 / 350 751 / 751 Balance -175 / -175 -651 / -651 Weight 142 lb 8 oz Patient Weight 11/13/17 05:59 Weight 142 lb 8 oz Intake & Output: Intake & Output 11/12/17 11/12/17 11/12/17 05:59 13:59 21:59 Intake Total 175 / 175 100 / 100 Output Total 350 / 350 751 / 751 Balance -175 / -175 -651 / -651 Weight 142 lb 8 oz Intake: IV 100 / 100 Oral 175 / 175 Output: Void Amount 350 / 350 750 / 750 Urine/Stool Mix Other: Meal Breakfast Percent of Meal Consumed 100% Feeding Ability Assist with Tray Set Up # Voids 2 Exam: Constitutional; Afebrile, cooperative, alert, not in distress. Eyes- No icterus, , No periorbital swelling Ears- Ext ear normal, hearing normal to conversation. Neck- Midline trachea, supple Respiratory system: Air Entry equal on both sides, No crackles or wheezing, no rhonchi. CVS- Rate rhythm regular, S1,S2 heard, no gallop, no rub. Abdomen- Soft nontender abdomen, no organomegaly, no tenderness, no guarding or rigidity, TEACHER HEARING IMPAIRED- AOOx3, moving all extremities, no gross focal deficit noted. Medical - PN: Obj Da - Labs CBC & Chem 7: 11/12/17 04:53 11/12/17 04:53 Labs: Abnormal Lab Results 11/12/17 11/12/17 11/12/17 04:53 04:53 04:53 RBC 2.64 L Hgb 8.5 L Hct 24.6 L Plt Count 130 L Gran % Lymph % (Auto) Gran # Lymph # (Auto) Seg Neutrophils % Lymphocytes % 13 L Platelet Estimate Decreased A PT 18.6 H INR 1.5 H Glucose Calcium 8.3 L Alkaline Phosphatase Total Protein 5.2 L Globulin 1.9 L 11/11/17 11/11/17 11/11/17 04:49 04:49 04:49 RBC 3.04 L Hgb 9.8 L Hct 28.3 L Plt Count Gran % Lymph % (Auto) Gran # Lymph # (Auto) Seg Neutrophils % 85 H Lymphocytes % 4 L Platelet Estimate PT 15.0 H INR 1.2 H Glucose 125 H Calcium 8.3 L Alkaline Phosphatase Total Protein 5.2 L Globulin 1.9 L 11/10/17 11/10/17 09:40 09:40 RBC 4.38 L Hgb Hct 40.7 L Plt Count Gran % 81.2 H Lymph % (Auto) 10.0 L Gran # 8.6 H Lymph # (Auto) 1.1 L Seg Neutrophils % Lymphocytes % Platelet Estimate PT INR Glucose 143 H Calcium Alkaline Phosphatase 129 H Total Protein Globulin Meds: Medications Acetaminophen (Tylenol) 650 mg PO Q4-6HP PRN PRN Reason: PAIN/FEVER > 101 Bisacodyl (Dulcolax) 10 mg DE Q2-3DAYS PRN PRN Reason: Constipation Docusate Sodium (Colace) 100 mg PO BID [facility] Last Admin: 11/12/17 09:16 Dose: 100 mg Hydromorphone HCl (Dilaudid) 0 mg IV Q4HP PRN PRN Reason: PAIN LEVEL > 6 Magnesium Sulfate (Magnesium Sulfate) 2 gm in 50 mls @ 50 mls/hr IV UD PRN PRN Reason: MG = or < 1.7 Acetaminophen (Ofirmev) 1,000 mg in 100 mls @ 200 mls/hr IV Q6HP PRN PRN Reason: PAIN/FEVER > 101 Last Infusion: 11/12/17 10:46 Dose: Infused Magnesium Hydroxide (Milk Of Magnesia) 30 ml PO BIDP PRN PRN Reason: Constipation Methocarbamol (Robaxin) 750 mg PO Q6HP PRN PRN Reason: Muscle Spasm Last Admin: 11/11/17 13:42 Dose: 750 mg Morphine Sulfate (Morphine) 0 mg IV Q1HP PRN PRN Reason: PAIN LEVEL > 6 Ondansetron HCl (Zofran) 4 mg IV Q4-6HP PRN PRN Reason: Nausea And Vomiting Oxycodone/Acetaminophen (Percocet 5-325 Mg) 0 tab PO Q4HP PRN PRN Reason: PAIN LEVEL 3-6 Last Admin: 11/12/17 04:10 Dose: 1 tab Polyethylene Glycol (Miralax) 17 gm PO DAILYP PRN PRN Reason: Constipation Potassium Chloride (Klor-Con) 40 meq PO DAILYP PRN PRN Reason: K+ < 3.5 Senna/Docusate Sodium (Senna Plus Tablet) [address] [facility] Last Admin: 11/11/17 19:55 Dose: 2 tab Sodium Biphosphate/Sodium Phosphate (Fleets Adult) 1 dose DE Q3-4DAYS PRN PRN Reason: Constipation Sodium Chloride (Saline Flush) 10 ml IV Q8 [facility] Last Admin: 11/12/17 06:07 Dose: 10 ml Throat Lozenges (Cepacol) 1 lozenge PO PRN PRN PRN Reason: Sore Throat Last Admin: 11/10/17 23:56 Dose: 1 lozenge Trazodone HCl (Desyrel) 50 mg PO HSP PRN PRN Reason: Insomnia Warfarin Sodium (Coumadin Per Pharmacy) 1 order PO UD [facility] Warfarin Sodium (Coumadin) 5 mg PO DAILY@1400 [facility] Last Admin: 11/12/17 13:52 Dose: 5 mg Medical - PN: A/P - Time Spent With Patient Total time spent is greater than 50% in coordination of care (as documented) at patient's floor/unit and/or counseling patient: - Narrative A/P Narrative: A/P Hip fracture cerebellar ataxia Anemia, post hemorrhagic, Post operative Anxiety disorder Plan continue with therapy and pain management as per ortho DVT prophylaxis as per ortho . Medical - PN: Qual - VTE Deep Vein Thrombosis/Pulmonary Embolism Present on Admission: No
--- NOTE | 2017-11-12 18:35 | Orthopedic Progress Note ---
Orthopedics - Auxillary Note - Subjective Patient Information: Note initiated : 11/12/17 at 6:33 pm Service Date, if different from initiated Date: [] Patient: Kristian Cho 72 y/o M admitted on 11/10/17 for Right Hip Pain, Fall/ Closed Right Hip Fracture. Chief Complaint: No c/o. bandages c/d/i nvi-distal Vital Signs Temp Pulse Resp BP Pulse Ox 11/12/17 16:00 98.4 F 82 20 137/75 96 11/12/17 12:00 98.4 F 90 20 145/73 96 11/12/17 07:15 98.2 F 96 H 20 156/75 96 11/12/17 04:00 98.6 F 65 20 137/81 95 11/12/17 00:00 98.8 F 62 20 130/70 94 11/11/17 20:00 98.6 F 82 20 128/62 96 Intake and Output 11/12/17 11/12/17 11/12/17 05:59 13:59 21:59 Intake Total 175 / 175 100 / 100 Output Total 350 / 350 751 / 751 Balance -175 / -175 -651 / -651 Intake: IV 100 / 100 Oral 175 / 175 Output: Void Amount 350 / 350 750 / 750 Urine/Stool Mix Other: Meal Breakfast Percent of Meal Consumed 100% Feeding Ability Assist with Tray Set Up # Voids 2 Weight 142 lb 8 oz Patient Weight 11/13/17 05:59 Weight 142 lb 8 oz Laboratory Results - last 24 hr 11/12/17 11/12/17 11/12/17 04:53 04:53 04:53 WBC 6.5 RBC 2.64 L Hgb 8.5 L Hct 24.6 L MCV 93.2 MCH 32.3 MCHC 34.6 RDW 13.5 Plt Count 130 L MPV 7.9 Total Counted 100 Seg Neutrophils % 75 Band Neutrophils % Not Reportable Lymphocytes % 13 L Monocytes % (Manual) 11 Basophils % (Manual) 1 Platelet Estimate Decreased A RBC Morphology Normal PT 18.6 H INR 1.5 H Sodium 141 Potassium 4.1 Chloride 106 Carbon Dioxide 25 Anion Gap 10.0 BUN 15 Creatinine 0.7 GFR Calculation 94 Glucose 104 Uric Acid 4.0 Calcium 8.3 L Phosphorus 2.7 Magnesium 2.0 Total Bilirubin 0.4 Direct Bilirubin < 0.2 GGT 9 AST 15 ALT 10 Alkaline Phosphatase 64 Lactate Dehydrogenase 144 Total Protein 5.2 L Albumin 3.3 Globulin 1.9 L Albumin/Globulin Ratio 1.7 Triglycerides 68 s/p R hip IM nailing-stable mobilize with PT sign off ortho: f/u at [facility] 2 weeks; weight-bear as tolerated; leave dressing on for 7 days
[2017-11-12] MEDS: SENNOSIDES/DOCUSATE SODIUM 1 TAB TABLET PO SCH (21:06)
[2017-11-13] MEDS: oxyCODONE/APAP 5/325MG TABLET PO PRN (06:04)
[2017-11-13] MEDS: 0.9 % SODIUM CHLORIDE 10 ML SYRINGE IV SCH (06:04)
[2017-11-13 06:24] LABS: Mean Cell Volume 93.4 fL (80.0-100.0); Mean Corpuscular HGB Conc 34.3 g/dL (31.0-36.0); Platelet Count 141 K/mcL (140-440); Red Cell Distribution Width 13.7 % (11.5-14.5)
[2017-11-13 07:19] LABS: ALT/SGPT 12 U/l (0-40); Albumin 3.5 gm/dL (3.2-5.2); Albumin/Globulin Ratio 1.7 (1.0-2.3); Alkaline Phosphatase 70 U/L (39-117); Bilirubin,Direct < 0.2 mg/dL (0.0-0.3); Blood Urea Nitrogen 16 mg/dl (8-23); Gamma Glutamyl Transpeptidase 10 U/L (8-61)
[2017-11-13 08:29] LABS: Eosinophils % (Manual) 3 % (0-7); Lymphocytes % 22 % (15-49); Monocytes % (Manual) 6 % (1-12); Platelet Estimate NORMAL (NORMAL); RBC Morphology NORMAL (NORMAL); Segmented Neutrophils % 69 % (38-78)
[2017-11-13] MEDS: DOCUSATE SODIUM 100 MG CAPSULE PO SCH (08:52)
--- NOTE | 2017-11-13 11:54 | Orthopedic Progress Note ---
Subjective Patient information: Note initiated : 11/13/17 at 11:52 am Service Date, if different from initiated Date: [] Patient: Kristian Cho 72 y/o M admitted on 11/10/17 for Right Hip Pain, Fall/ Closed Right Hip Fracture. Chief Complaint: [] Principal diagnosis: s/p IMR L IT fx Interval history: pain well controlled, ambulating well Objective Vital signs: Vital Signs Temp Pulse Resp BP Pulse Ox 11/13/17 10:58 97.1 F 16 133/73 98 11/13/17 07:02 98.2 F 16 153/84 97 11/13/17 06:41 68 11/13/17 04:00 97.8 F 65 16 143/74 96 11/13/17 00:00 99.1 F H 68 16 135/76 97 11/12/17 20:00 98.4 F 80 18 159/76 97 11/12/17 16:00 98.4 F 82 20 137/75 96 11/12/17 12:00 98.4 F 90 20 145/73 96 Intake and Output 11/12/17 11/13/17 11/13/17 21:59 05:59 13:59 Intake Total 1140 / 1140 100 / 100 200 / 200 Output Total 375 / 375 300 / 300 350 / 350 Balance 765 / 765 -200 / -200 -150 / -150 Intake: IV 100 / 100 Oral 1040 / 1040 100 / 100 200 / 200 Output: Void Amount 375 / 375 300 / 300 350 / 350 Other: Meal Lunch Breakfast Percent of Meal Consumed 100% 100% # Voids 1 Weight 144 lb 8 oz Intake & Output: Intake & Output 11/12/17 11/13/17 11/13/17 21:59 05:59 13:59 Intake Total 1140 / 1140 100 / 100 200 / 200 Output Total 375 / 375 300 / 300 350 / 350 Balance 765 / 765 -200 / -200 -150 / -150 Weight 144 lb 8 oz Intake: IV 100 / 100 Oral 1040 / 1040 100 / 100 200 / 200 Output: Void Amount 375 / 375 300 / 300 350 / 350 Other: Meal Lunch Breakfast Percent of Meal Consumed 100% 100% # Voids 1 Dressing: Yes clean, Yes dry, Yes intact Weight bearing status: as tolerated Neurological exam IM: Yes alert, Yes oriented X3 - Labs CBC & BMP: 11/13/17 05:27 11/13/17 05:27 Labs: Orthopedic Labs 11/13/17 11/12/17 11/11/17 05:27 04:53 04:49 POC PT PT 21.3 H 18.6 H 15.0 H POC INR INR 1.8 H 1.5 H 1.2 H 11/10/17 10:31 POC PT 13.6 PT POC INR 1.1 INR 11/13/17 11/12/17 11/11/17 05:27 04:53 04:49 Hgb 8.3 L 8.5 L 9.8 L Hct 24.3 L 24.6 L 28.3 L 11/10/17 09:40 Hgb 13.9 Hct 40.7 L Assessment and Plan (1) Intertrochanteric fracture of right femur POD#3-stable -d/c to SNF today -pt and do not want coumadin, I discussed asa not formally indicated for DVT prophylaxis for hip fx, they are aware and still want to do just ASA 325 bid for 4 weeks. Status: Acute
--- NOTE | 2017-11-13 12:05 | Discharge Summary ---
Medical - DS: Prov Patient information: Note initiated : 11/13/17 at 12:03 pm Service Date, if different from initiated Date: [] Patient: Kristian Cho 72 y/o M admitted on 11/10/17 for Right Hip Pain, Fall/ Closed Right Hip Fracture. Chief Complaint: [] Date of admission: 11/10/17 16:10 Discharge date: 11/13/17 Primary care physician: Rossy Orr Admitting clinician: Arnoldo Jhaveri Consults: 11/10/17 11:25 Consult to Physician [CONS] Stat Comment: Consulting Provider: Carlton Rose Reason For Exam: Physician to Consult 11/10/17 11:26 Consult to Physician [CONS] Stat Comment: Consulting Provider: Arnoldo Jhaveri Reason For Exam: Physician to Consult Discharging clinician: Jose Alberto Wing Medical - DS: Meds - Discharge Medications Prescriptions: Aspirin [Aspirin EC] 325 mg PO BID #28 tablet. oxyCODONE/APAP [Percocet 5-325 mg] 1 - 2 tab PO Q4-6H PRN #60 tab PRN Reason: Pain Active and Home Medications: Home Medications Acetaminophen 1,000 mg PO QHS PRN 11/10/17 [History Confirmed 11/10/17 Last Taken 1 Day Ago ~11/09/17 1000 mg] Buspar 15 mg PO QHS 11/10/17 [History Confirmed 11/10/17 Last Taken 1 Day Ago ~ 11/09/17 15 mg] Aspirin [Aspirin EC] 325 mg PO BID #28 tablet. 11/13/17 [Rx Last Taken Unknown ] oxyCODONE/APAP [Percocet 5-325 mg] 1 - 2 tab PO Q4-6H PRN #60 tab 11/13/17 [Rx Last Taken Unknown] Medical - DS: Hosp Hospital course: 70-year-old with history of cerebellar ataxia admitted after fall/90 fracture. Patient taken to surgery from ER. Hospitalist consult for management of medical issues. 11/11- no overnight events. No concerns per staff. Tolerating physical therapy. Tolerating diet. C/o rt thigh spasms. Postoperative pain good control. Postoperative care/DVT prophylaxis as per orthopedics. 11/12 patient seen and examined no acute. participating in physical therapy well, Not complaining about pain today, hb dropped, but hemodynamically stable, likely post op drop, monitor for now 11/13: Seen and examined no acute overnight events, hemoglobin remained stable 8.3 this morning. No acute bleed reported. Patient has no complaints tolerating p.o. diet well and responds feeding well with physical therapy. The patient is stable for discharge to custodial from a medical standpoint. Orthopedics has done the prescriptions for pain management as well as DVT prophylaxis postop. He should resume his home dose of BuSpar he notes that sometimes he does not take these medications when he is at the custodial he is okay to refuse this at the custodial. Discharge diagnosis: hip fracture - Time Spent with Patient Total time spent providing and/or coordinating discharge services: Less than 30 minutes Medical - DS: Exam - Constitutional Vitals: Vital Signs Temp Pulse Resp BP Pulse Ox 11/13/17 10:58 97.1 F 16 133/73 98 11/13/17 07:02 98.2 F 16 153/84 97 11/13/17 06:41 68 11/13/17 04:00 97.8 F 65 16 143/74 96 11/13/17 00:00 99.1 F H 68 16 135/76 97 11/12/17 20:00 98.4 F 80 18 159/76 97 11/12/17 16:00 98.4 F 82 20 137/75 96 Intake and Output 11/12/17 11/13/17 11/13/17 21:59 05:59 13:59 Intake Total 1140 / 1140 100 / 100 200 / 200 Output Total 375 / 375 300 / 300 350 / 350 Balance 765 / 765 -200 / -200 -150 / -150 Intake: IV 100 / 100 Oral 1040 / 1040 100 / 100 200 / 200 Output: Void Amount 375 / 375 300 / 300 350 / 350 Other: Meal Lunch Breakfast Percent of Meal Consumed 100% 100% # Voids 1 Weight 144 lb 8 oz Additional comments: Constitutional; Afebrile, cooperative, alert, not in distress. Eyes- No icterus, , No periorbital swelling Ears- Ext ear normal, hearing normal to conversation. Neck- Midline trachea, supple Respiratory system: Air Entry equal on both sides, No crackles or wheezing, no rhonchi. CVS- Rate rhythm regular, S1,S2 heard, no gallop, no rub. Abdomen- Soft nontender abdomen, no organomegaly, no tenderness, no guarding or rigidity, MARKETING COMMUNICATIONS LEADER- AOOx3, moving all extremities, no gross focal deficit noted. Medical - DS: Data Labs on day of discharge: Labs from last 24 hours 11/13/1718 18 05:27 05:27 05:27 WBC 5.8 RBC 2.60 L Hgb 8.3 L Hct 24.3 L MCV 93.4 MCH 32.0 MCHC 34.3 RDW 13.7 Plt Count 141 MPV 7.7 Total Counted 100 Seg Neutrophils % 69 Band Neutrophils % Not Reportable Lymphocytes % 22 Monocytes % (Manual) 6 Eosinophils % (Manual) 3 Platelet Estimate Normal RBC Morphology Normal PT 21.3 H INR 1.8 H Sodium 142 Potassium 3.7 Chloride 105 Carbon Dioxide 24 Anion Gap 13.0 BUN 16 Creatinine 0.6 L GFR Calculation 100 Glucose 104 Uric Acid 4.0 Calcium 8.3 L Phosphorus 3.9 Magnesium 2.0 Total Bilirubin 0.4 Direct Bilirubin < 0.2 GGT 10 AST 16 ALT 12 Alkaline Phosphatase 70 Lactate Dehydrogenase 164 Total Protein 5.6 L Albumin 3.5 Globulin 2.1 L Albumin/Globulin Ratio 1.7 Triglycerides 84 Medical - DS: A/P - Patient/Caregiver Discharge Instructions Activity: as per physical therapy, increase activity as tolerated Diet: Regular Diet Additional Instructions: Discharge Instructions: Do the exercises at home that physical therapy gave you throughout the day. Wear comfortable clothing for your physical therapy. Weight bearing as tolerated. You have the Aquacel Ag dressing, leave in place for 7 days then remove. If dressing becomes soiled (turns black), remove and use gauze 4x4 dressing and silvasorb ointment and change daily. Keep incision clean and dry. You may start showering on post op day #2. To avoid constipation while taking any narcotic pain medication, take an over the counter stool softener/laxative. Use ice packs as directed, on for 20 minutes at a time throughout the day. This and elevation will help with pain and swelling. Call your physician for fevers above 100.5 or pain not controlled by medication. Your prescriptions are with your discharge information. Some medications were electronically transmitted to your pharmacy of choice. Prescriptions: Aspirin [Aspirin EC] 325 mg PO BID #28 tablet. oxyCODONE/APAP [Percocet 5-325 mg] 1 - 2 tab PO Q4-6H PRN #60 tab PRN Reason: Pain - Follow up Plan Follow up with: Carlton Rose MD [Physician] - (Please call/schedule surgical follow up to be seen in two weeks following surgery.) Rossy Orr ARNP [Primary Care Provider] - Disposition: Xfer SNF Prognosis: Fair Rehab Potential: Fair I certify that the patient requires SNF services: Yes Overall status at discharge: patient is progressing back to baseline Medical - DS: Qual - VTE Deep Vein Thrombosis/Pulmonary Embolism Present on Admission: No
[2017-11-13] MEDS ORDERED: busPIRone 15 MG TABLET PO SCH (21:00)
== END 2017-11-13 12:25 | DRG 481 ==
LOC: ED 09:18 → SUR 12:57 → MEDSUR 16:10
PROVIDERS: ADMIT Internal Medicine; ATTEND Internal Medicine